=== PATIENT | male | born 1955 | race Caucasian/White ===

== ENCOUNTER → 2017-07-18 | Outpatient (CLI) | payer BC ==
[~2017-07-18] MED LIST: ACTOS15 MG PO; ALBT2T PO; ALBU17AE23 IH; ALBU8.5H2 IH; AMLO10TA2 PO; AMLO5TAB5 PO; ASP325T NG; ASP325T PO; ASP81TEC PO; ASPI-983 PO; ATEN50TA PO; ENAL10TA PO; ENAL1TAB19 PO; ENAL5TAB PO; FLAX1CAP4 PO; FLUT16SP22 NSEACH; LEVE1U SQ; LOVA20TA2 PO; MELO-195 PO; NAPR500T3 PO; NITR0.3T6 SL; NITR0.4T SL; OMG1KC PO; PANT40TA3 PO; PIOG15TA22 PO; PNT40TEC PO; POLY17PO23 PO; PREG75CA PO; SIMV40TA2 PO; SUCR1TAB PO; TRAM50TA2 PO; TRM50T PO
== END ==
LOC: RAD 11:18
PROVIDERS: ATTEND Internal Medicine Cardiovascular Disease
DX: I25.10 Atherosclerotic heart disease of native coronary artery without angina pectoris (principal); R09.89 Other specified symptoms and signs involving the circulatory and respiratory systems; R07.9 Chest pain, unspecified; E11.9 Type 2 diabetes mellitus without complications; I10 Essential (primary) hypertension
CPT/HCPCS: 93306

== ENCOUNTER 2019-03-08 07:08 | Outpatient (CLI) | payer BC ==
[~2019-03-08] VITALS: Ht 172.7 cm; Wt 147.4 kg
[~2019-03-08 07:08] MED LIST changes: -AMLO10TA2 PO; +AMLO10TA7 PO; +NAPR-915 PO; -NAPR500T3 PO; -PIOG15TA22 PO; +PIOG15TA67 PO
[2019-03-08] MEDS ORDERED: PIOG30TA71 PO (14:50)
[2019-03-08] MEDS ORDERED: FLAX1CAP4 PO (14:50)
[2019-03-08] MEDS ORDERED: GLIP5TAB13 PO (14:50)
[2019-03-08] MEDS ORDERED: ROSU20TA31 PO (14:50)
[2019-03-08] MEDS ORDERED: METO-395 PO (14:50)
[2019-03-10] MEDS ORDERED: PANT40TA2 PO (13:06)
== END 2019-03-08 14:51 | disposition home or self-care (01) ==
LOC: PREOP 07:08
PROVIDERS: ATTEND Surgery
DX: Z01.818 Encounter for other preprocedural examination (principal)

== ENCOUNTER 2019-03-10 12:19 | Day surgery (SDC) | payer BC ==
[~2019-03-10] VITALS: Ht 172.7 cm; Wt 147.4 kg
[~2019-03-10 12:19] MED LIST changes: +GLIP5TAB13 PO; +METO-395 PO; +PIOG30TA71 PO; +ROSU20TA31 PO
[2019-03-10] MEDS ORDERED: MIDAZOLAM 2 MG/2 ML (VERSED) VIAL IVP ONE (12:45)
[2019-03-10] MEDS ORDERED: fentaNYL INJECTION 100 MCG/2 ML AMP IVP ONE (12:45)
[2019-03-10] MEDS ORDERED: LIDOCAINE JELLY 2% 6 ML SYRINGE MM PRN (12:45)
[2019-03-10] MEDS ORDERED: HURRICAINE EXT TUBE (BENZOCAINE) XX PRN (12:45)
[2019-03-10] MEDS ORDERED: NS IV 500 ML 500 ML ONE ×2 (12:50→15:35)
[2019-03-10] MEDS: NS IV 500 ML 500 ML IV PRN ×2 (13:00→15:35)
--- NOTE | 2019-03-10 13:04 | Conscious Sedation/ASA ---
Conscious Sedation Pre-Proced Time 13:00 ASA Score 2 For ASA 3 and 4: Consider anesthesia and medical clearance. Also, for patients with a history of failed moderate sedation consider anesthesia. Airway Lungs Heart ASA score ASA 1: a normal healthy patient ASA 2: a patient with a mild systemic disease (mid diabetes, controlled hypertension, obesity ASA 3: a patient with a severe systemic disease that limits activity (angina, COPD, prior Myocardial infarction) ASA 4: a patient with an incapacitating disease that is a constant threat to life (CHF, renal failure) ASA 5: a moribund patient not expected to survive 24 hrs. (ruptured aneurysm) ASA 6: a declared brain- patient whose organs are being harvested. For emergent operations, add the letter E after the classification Mallampati Classification Grade 2 Sedation Plan Analgesia, Amnesia, Plan communicated to team members, Discussed options with patient/fam, Discussed risks with patient/fam The patient is an appropriate candidate to undergo the planned procedure, sedation, and anesthesia. The patient immediately re-assessed prior to indication. MERCEDES BURRELL MD March 10, 2019 13:04
--- NOTE | 2019-03-10 13:05 | Progress Note-Pre Operative ---
Pre-Operative Progress Note H&P Reviewed The H&P was reviewed, patient examined and no changes noted. Date Seen by Provider: March 10, 2019 Time Seen by Provider: 13:00 Date H&P Reviewed: March 10, 2019 Time H&P Reviewed: 13:00 Pre-Operative Diagnosis: dysphagia, screening o MERCEDES BURRELL MD March 10, 2019 13:05
[2019-03-10] MEDS ORDERED: PANT40TA2 PO (13:06)
--- NOTE | 2019-03-10 13:07 | Discharge Inst-Surgical ---
D/C Lap Instructions-KIDO New, Converted, or Re-Newed RX: RX on Chart Follow Up Activity as tolerated High Fiber Diet 25g or more per day Avoid Alcohol, Caffeine, Spicy [place] and Acid foods. Drink 64 fluid oz or more of fluids per day. Symptoms to Report: Fever over 101 degree F, Nausea/Vomiting If any problems/questions: Contact your physician or go to Emergency Room MERCEDES BURRELL MD March 10, 2019 13:07
[2019-03-10 13:09] VITALS: BP 150/108
[2019-03-10] MEDS ORDERED: ONDANSETRON 4 MG/2 ML (SDV) Z0FRAN IV PRN (13:15)
[2019-03-10] MEDS ORDERED: HYDROcodone/APAP 5 MG/325 MG (LORTAB) TAB PO PRN (13:15)
[2019-03-10] MEDS ORDERED: ACETAMINOPHEN 325 MG TABLET PO PRN (13:15)
[2019-03-10] MEDS ORDERED: morphine INJ 10 MG/ML 1ML (SYR OR VIAL) IV PRN (13:15)
[2019-03-10] MEDS ORDERED: LIDOCAINE JELLY 2% 6 ML SYRINGE ONE (15:03)
[2019-03-10] MEDS ORDERED: fentaNYL INJECTION 100 MCG/2 ML AMP ONE ×2 (15:03)
[2019-03-10] MEDS ORDERED: MIDAZOLAM 2 MG/2 ML (VERSED) VIAL ONE ×5 (15:04→15:35)
[2019-03-10] MEDS ORDERED: HURRICAINE EXT TUBE (BENZOCAINE) ONE (15:04)
--- NOTE | 2019-03-10 16:20 | Progress Note-Post Operative ---
Post-Operative Progess Note Surgeon (s)/Mechanical Artist (s) Surgeon MERCEDES BURRELL MD Mechanical Artist: none Pre-Operative Diagnosis dysphagia, screening colo Post-Operative Diagnosis reflux esophagitis(stage 2), mild distal esoph stricture vs. achalasia, small-mod HH(2cm), moderate gastritis. chronic stage 2 ext and int hemorrhoids, mild sigmoid diverticulosis, sigmoid polyp(3mm). Procedure & Operative Findings Date of Procedure 03/10/19 Procedure Performed/Findings EGD with bx and balloon dilatation. Colonoscopy with snare polypectomy. Anesthesia Type cs Estimated Blood Loss Estimated blood loss (mL): minimal Specimens/Packing Specimens Removed ge jxn, antrum, sigmoid polyp. MERCEDES BURRELL MD March 10, 2019 16:20
[2019-03-10 16:35] VITALS: BP 103/55
[2019-03-10 17:05] VITALS: BP 124/76
--- NOTE | 2019-03-11 01:06 | OPERATIVE REPORT ---
DATE OF SERVICE: 03/10/2019 ATTENDING PRIMARY CARE PHYSICIAN: Janene Velazco MD PREOPERATIVE DIAGNOSES: Nausea, vomiting, dysphagia, regurgitation, screening colonoscopy. POSTOPERATIVE DIAGNOSES: Reflux esophagitis stage II with a mild distal esophageal stricture versus a mild achalasia. Mild to moderate hiatal hernia approximately 2 cm in size, moderate severity gastritis. No distal obstructions. Chronic stage II external and internal hemorrhoids, mild sigmoid diverticulosis. Pedunculated polyp of the sigmoid colon approximately 3 mm in size. PROCEDURE: EGD with biopsy, colonoscopy with snare polypectomy. SURGEON: Mercedes Dozier MD ANESTHESIA: Conscious sedation. ESTIMATED BLOOD LOSS: Minimal. FINDINGS: Reflux esophagitis stage II with a mild distal esophageal stricture versus a mild achalasia. Mild to moderate hiatal hernia approximately 2 cm in size, moderate severity gastritis. No distal obstructions. Chronic stage II external and internal hemorrhoids, mild sigmoid diverticulosis. Pedunculated polyp of the sigmoid colon approximately 3 mm in size. DISPOSITION: The patient tolerated the procedure well. INDICATIONS: The patient is a 63-year-old male referred over to us for reflux, regurgitation, nausea and vomiting as well as dysphagia. He also reports that he is in need of a screening colonoscopy. However, he also does report in the last two months, he has had diarrhea. He reports that he does have dysphagia and does have a food and medications that will cause substernal pressure sensation, which would eventually reduce; however, he also does have episodes of regurgitation. He reports that he has been diagnosed with H. pylori in the past. He is currently on Protonix; however, feels that this has become effective over time. DESCRIPTION OF PROCEDURE: The patient was brought to the endoscopy suite, laid in the left lateral decubitus position. After adequate IV pain and sedative medications and conscious sedation anesthesia, the mouthpiece was applied. The endoscope was placed in the mouth, visualizing the pharynx and hypopharyngeal region. Vocal cords, epiglottis and vallecula identified and appeared to be normal. The endoscope was then intubated to the esophageal opening and esophagus insufflated. The endoscope was then advanced to the first, second and third portion of esophagus to the level of the GE junction, a reflux esophagitis stage II identified. There was a narrowing of this region, which may be indicated a mild distal esophageal stricture versus achalasia of the lower esophageal sphincter. A biopsy was taken of the GE junction with forceps with visualization of good hemostasis. The endoscope was then easily advanced in the stomach and the endoscope retroflexed visualizing a hiatal hernia approximately 2 cm in size. There was a moderate severity gastritis. No formal ulcerations, polyps or any neoplasms. A biopsy was taken of the antrum to rule out H. pylori with visualization of good hemostasis. Endoscope was then advanced to the pylorus and the first and second portion of the duodenum, which appeared normal with no distal obstructions. We then proceeded with dilatation of the mild stricture versus achalasia. The balloon was placed in the stomach and pulled back to the area of the narrowing. The balloon was then insufflated 2 atmospheres of pressure with no resistance. We then proceeded to 4 atmospheres of pressure with no resistance. A 6 atmospheres of pressure or 20 mm in luminal diameter, there was mild to moderate resistance and we left this in place for 60 seconds. The balloon was then desufflated, removed with visualization of good hemostasis as well as no mucosal tears. Endoscope was then slowly withdrawn while taking a second look and suctioning residual air with no additional findings. The patient tolerated the procedure well. We will recommend the necessary lifestyle and diet accommodation including weight loss as well as avoidance of caffeinated beverages, spicy, greasy and acidic foods. We will have him continue with Protonix; however, add Carafate 1 gram q.i.d. for the next 2 weeks then on a p.r.n. basis. He does have recurrent dysphagia. He may need continued graded dilatation; however, his symptoms may also be related to his hiatal hernia and we will recommend medical management with the necessary lifestyle and diet accommodation including small and more frequent meals, avoidance of eating at night as well as head elevation while lying supine. He also needs to avoid caffeinated beverages, spicy, greasy and acidic foods. Under the same anesthesia, we then proceeded with the colonoscopy portion of the procedure. A digital rectal examination was performed, which revealed mild chronic stage I external and internal hemorrhoids. Normal sphincter tone was felt and there were no palpable masses. Prostate gland was palpable and appeared normal. The endoscope was then intubated into the anus and rectum gently insufflated. The endoscope was then advanced to the valves of Jim of the rectum with no polyps or any neoplasms identified. We then proceeded through the sigmoid colon where a mild sigmoid diverticulosis identified. There was also a pedunculated polyp approximately 3 mm in size identified. This was resected and cauterized at the base using a snare and electrocautery. This was retreated by a Rodriguez Net. The endoscope was then advanced to the remainder of the sigmoid colon as well as descending, transverse and ascending colon to the cecum. These segments were normal. The endoscope was then slowly withdrawn while taking a second look and suctioning of residual air with no additional findings. The patient tolerated the procedure well. We will recommend a high fiber diet with at least 30 grams of fiber per day as well as significant amounts of water to promote more solid stool; however, not liquid diarrhea. We also do not want them to be constipated as well and he needs to find a good medium based on the amount of fiber in his diet. For his diarrhea this may be medication related and we will start a trial of Questran. We will also await the biopsy results and that this is a tubular adenoma, he may wait another 10 years; however, if there is any villous component, he will need a followup colonoscopy in 3 years. Job ID: [id number] DocumentID: [id number] Dictated Date: 03/10/2019 16:11:55 Licensed Journeyman Electrician Date: 03/11/2019 01:05:29 Dictated By: MERCEDES DOZIER MD
== END 2019-03-10 17:05 | disposition home or self-care (01) ==
LOC: ENDO 12:19
PROVIDERS: ATTEND Surgery
DX: Z12.11 Encounter for screening for malignant neoplasm of colon (principal); D12.5 Benign neoplasm of sigmoid colon; K21.0 Gastro-esophageal reflux disease with esophagitis; K44.9 Diaphragmatic hernia without obstruction or gangrene; K29.50 Unspecified chronic gastritis without bleeding; K64.1 Second degree hemorrhoids; K57.30 Diverticulosis of large intestine without perforation or abscess without bleeding; I25.10 Atherosclerotic heart disease of native coronary artery without angina pectoris; I10 Essential (primary) hypertension; E78.00 Pure hypercholesterolemia, unspecified; J44.9 Chronic obstructive pulmonary disease, unspecified; I25.2 Old myocardial infarction; Z87.19 Personal history of other diseases of the digestive system; Z79.899 Other long term (current) drug therapy; Z79.84 Long term (current) use of oral hypoglycemic drugs; Z79.82 Long term (current) use of aspirin

== ENCOUNTER → 2019-12-29 | Outpatient (CLI) | payer MEDICARE, MEDICAID ==
[~2019-12-29] MED LIST changes: -METO-395 PO; +MTP100TCR PO; +PANT40TA2 PO; -ROSU20TA31 PO; +ROSU20TA32 PO; -TRAM50TA2 PO
[2019-12-29 15:04] LABS: BILIRUBIN,TOTAL 0.9 MG/DL (0.1-1.0); CREATININE SERUM 1.33 MG/DL (0.60-1.30); POTASSIUM 4.7 MMOL/L (3.6-5.0)
[2019-12-29 15:05] LABS: ALBUMIN 4.4 GM/DL (3.2-4.5); TOTAL PROTEIN 7.6 GM/DL (6.4-8.2)
== END ==
LOC: LAB FS 13:01
PROVIDERS: ATTEND Internal Medicine Cardiovascular Disease
DX: I25.10 Atherosclerotic heart disease of native coronary artery without angina pectoris (principal); I44.4 Left anterior fascicular block; I10 Essential (primary) hypertension; E11.9 Type 2 diabetes mellitus without complications; E78.2 Mixed hyperlipidemia
CPT/HCPCS: 36415; 80053; 80061

== ENCOUNTER 2020-04-17 18:00 | Observation (INO) | payer MEDICARE, MEDICAID ==
[~2020-04-17] VITALS: Ht 172.7 cm; Wt 121.1 kg
[2020-04-17] MEDS ORDERED: ASPIRIN 81 MG CHEW (CHILDREN'S ASA) PO ONE (18:15)
[2020-04-17 18:31] LABS: BASOPHILS % (AUTO) 0 % (0-10); EOSINOPHILS # (AUTO) 0.2 10^3/uL (0.0-0.3); EOSINOPHILS % (AUTO) 3 % (0-10); HEMATOCRIT 45 % (40-54); HEMOGLOBIN 14.4 G/DL (13.3-17.7); LYMPHOCYTES # (AUTO) 1.9 X 10^3 (1.0-4.0); LYMPHOCYTES % (AUTO) 26 % (12-44); MEAN CORPUSCULAR HEMOGLOBIN 26 PG (25-34); MEAN CORPUSCULAR HGB CONC 32 G/DL (32-36); MEAN CORPUSCULAR VOLUME 80 FL (80-99); MONOCYTES # (AUTO) 0.7 X 10^3 (0.0-1.0); MONOCYTES % (AUTO) 9 % (0-12); NEUTROPHILS # (AUTO) 4.5 X 10^3 (1.8-7.8); NEUTROPHILS % (AUTO) 62 % (42-75); PLATELET COUNT 154 10^3/uL (130-400); RED CELL DISTRIBUTION WIDTH 15.7 % (10.0-14.5); WHITE BLOOD COUNT 7.3 10^3/uL (4.3-11.0)
--- NOTE | 2020-04-17 18:39 | ED Chest Pain ---
General Chief Complaint: Chest Pain Stated Complaint: CP Source: patient Exam Limitations: no limitations History of Present Illness Date Seen by Provider: Apr 17, 2020 Time Seen by Provider: 18:03 Initial Comments 65-year-old male who presents to the emergency room with complaints of chest pain started last night. He reports he has history of IL and has been using some older nitroglycerin and he has been uses from time to time. He reports that the chest pain is all of a sudden stabbing and radiates to his left shoulder and left jaw. He denies any shortness of breath but has had mild nausea and loss of appetite. He denies any cough, shortness of breath, or fevers. He does report that the pain takes his breath away. Timing/Duration: 24 hours Severity/Quality: mild Location: substernal Radiation: jaw, shoulders ASA po ASSISTANT FEDERAL PUBLIC DEFENDER: No NTG SL ASSISTANT FEDERAL PUBLIC DEFENDER: Yes Associated Symptoms: nausea/vomiting Allergies and Home Medications Allergies Coded Allergies: Haloperidol Lactate (Verified Allergy, Unknown, 08/11/15) glimepiride (Verified Allergy, Unknown, Diarrhea, 03/08/19) haloperidol (Verified Allergy, Unknown, 08/11/15) metformin (Verified Allergy, Unknown, 08/11/15) Home Medications Amlodipine Besylate 10 Mg Tablet, 10 MG PO DAILY, (Reported) Aspirin 81 Mg Tablet.dr, 81 MG PO DAILY, (Reported) Enalapril Maleate 10 Mg Tablet, 10 MG PO BID, (Reported) Flaxseed/Omega3,6,9/Fatty Acid 1 Each Capsule, 2 EACH PO DAILY, (Reported) Fluticasone Propionate 16 Gm [place].susp, 2 SPRAYS NSEACH DAILY IN AFTERNOON PRN for ALLERGIES, (Reported) Glipizide 5 Mg Tablet, 5 MG PO BID, (Reported) Metoprolol Succinate 100 Mg Tab.er.24h, 100 MG PO DAILY, (Reported) Pantoprazole Sodium 40 Mg Tablet.dr, 40 MG PO DAILY Prescribed by: MERCEDES BURRELL on 03/10/19 1306 Pioglitazone HCl 30 Mg Tablet, 30 MG PO DAILY, (Reported) Rosuvastatin Calcium 20 Mg Tablet, 20 MG PO HS, (Reported) Patient Home Medication List Home Medication List Reviewed: Yes Review of Systems Review of Systems Constitutional: see HPI; No chills, No fever Cardiovascular: See HPI, Chest Pain Gastrointestinal: See HPI, Nausea All Other Systems Reviewed Negative Unless Noted: Yes Past Lsrqgsj-Odzwhk-Bvbgmo Hx Past Med/Social Hx: Reviewed Nursing Past Med/Soc Hx Patient Social History Alcohol Use: Occasionally Uses Recreational Drug Use: No Smoking Status: Former Smoker Type Used: Cigarettes Former Smoker, Quit: March 08, 1990 Recent Hopitalizations: No Immunizations Up To Date Tetanus Booster (TDap): More than 5yrs Date of Pneumonia Vaccine: Sep 19, 2011 Date of Influenza Vaccine: Aug 12, 2015 Seasonal Allergies Seasonal Allergies: No Past Medical History Surgeries: Yes (teeth extraction) Appendectomy, Gallbladder Respiratory: Yes COPD Currently Using CPAP: No Currently Using BIPAP: No Cardiac: Yes (neuropathy of heart muscle, heart cath) Coronary Artery Disease, Heart Attack, High Cholesterol, Hypertension Neurological: No Reproductive Disorders: No Sexually Transmitted Disease: No HIV/AIDS: No Genitourinary: Yes Kidney Stones Gastrointestinal: Yes (dysphagia) Gastrointestinal Bleed, Hemorrhoids, Chronic Diarrhea, Hiatal Hernia Musculoskeletal: Yes Arthritis, Rheumatoid Arthritis Endocrine: Yes Diabetes, Non-Insulin dep HEENT: Yes Cataract, Tinnitis Loss of Vision: Denies Hearing Impairment: Denies Cancer: No Psychosocial: No Integumentary: No Blood Disorders: No Adverse Reaction/Blood Tranf: No Family Medical History Reviewed Nursing Family Hx Cardiovascular disease 19 FATHER 19 MOTHER Hypertension 19 FATHER No Pertinent Family Hx Physical Exam Vital Signs Vital Signs - First Documented 04/17/20 18:00 Temp 36.7 Pulse 88 Resp 20 B/P (MAP) 193/97 (129) Pulse Ox 99 O2 Delivery Room Air Capillary Refill : NONE Height, Weight, BMI Height: 5'8.00" Weight: 325lbs. 0.0oz. [id number]; 49.4 BMI Method: General Appearance: No Apparent Distress, WD/WN Respiratory: Chest Non Tender, Lungs Clear, Normal Breath Sounds, No Accessory Muscle Use, No Respiratory Distress Cardiovascular: Regular Rate, Rhythm, No Edema, No Gallop, No JVD, No Murmur, Normal Peripheral Pulses Gastrointestinal: Normal Bowel Sounds, No Organomegaly, No Pulsatile Mass, Non Tender Neurologic/Psychiatric: Alert, Oriented x3, Normal Mood/Affect Skin: Normal Color, Warm/Dry Progress/Results/Core Measures Results/Orders Lab Results Laboratory Tests Test 04/17/20 18:10 Range/Units White Blood Count 7.3 4.3-11.0 10^3/uL Red Blood Count 5.60 4.35-5.85 10^6/uL Hemoglobin 14.4 13.3-17.7 G/DL Hematocrit 45 40-54 % Mean Corpuscular Volume 80 80-99 FL Mean Corpuscular Hemoglobin 26 25-34 PG Mean Corpuscular Hemoglobin Concent 32 32-36 G/DL Red Cell Distribution Width 15.7 H 10.0-14.5 % Platelet Count 154 130-400 10^3/uL Mean Platelet Volume 11.0 H 7.4-10.4 FL Neutrophils (%) (Auto) 62 42-75 % Lymphocytes (%) (Auto) 26 12-44 % Monocytes (%) (Auto) 9 0-12 % Eosinophils (%) (Auto) 3 0-10 % Basophils (%) (Auto) 0 0-10 % Neutrophils # (Auto) 4.5 1.8-7.8 X 10^3 Lymphocytes # (Auto) 1.9 1.0-4.0 X 10^3 Monocytes # (Auto) 0.7 0.0-1.0 X 10^3 Eosinophils # (Auto) 0.2 0.0-0.3 10^3/uL Basophils # (Auto) 0.0 0.0-0.1 10^3/uL Prothrombin Time 13.9 12.2-14.7 SEC INR Comment 1.0 0.8-1.4 Activated Partial Thromboplast Time 30 24-35 SEC Sodium Level 136 135-145 MMOL/L Potassium Level 4.3 3.6-5.0 MMOL/L Chloride Level 102 98-107 MMOL/L Carbon Dioxide Level 21 21-32 MMOL/L Anion Gap 13 5-14 MMOL/L Blood Urea Nitrogen 21 H 7-18 MG/DL Creatinine 1.55 H 0.60-1.30 MG/DL Estimat Glomerular Filtration Rate 45 BUN/Creatinine Ratio 14 Glucose Level 220 H 70-105 MG/DL Calcium Level 9.8 8.5-10.1 MG/DL Corrected Calcium 9.5 8.5-10.1 MG/DL Magnesium Level 1.8 1.6-2.4 MG/DL Total Bilirubin 0.9 0.1-1.0 MG/DL Aspartate Amino Transf (AST/SGOT) 34 5-34 U/L Alanine Aminotransferase (ALT/SGPT) 37 0-55 U/L Alkaline Phosphatase 64 40-136 U/L Myoglobin 66.5 10.0-92.0 NG/ML Troponin I < 0.028 <0.028 NG/ML Total Protein 8.0 6.4-8.2 GM/DL Albumin 4.4 3.2-4.5 GM/DL My Orders Orders - FAWNDIONI Aspirin Chewable Tablet (Baby Aspirin Ch (04/17/20 18:15) Cbc With Automated Diff (04/17/20 18:02) Magnesium (04/17/20 18:02) Chest 1 View, Ap/Pa Only (04/17/20 18:02) Ekg Tracing (04/17/20 18:02) Comprehensive Metabolic Panel (04/17/20 18:02) Myoglobin Serum (04/17/20 18:02) Protime With Inr (04/17/20 18:02) Partial Thromboplastin Time (04/17/20 18:02) O2 (04/17/20 18:02) Monitor-Rhythm Ecg Trace Only (04/17/20 18:02) Ed Iv/Invasive Line Start (04/17/20 18:02) Troponin I (04/17/20 18:02) Coronavirus Sars-Cov-2 So 2019 (04/17/20 18:02) Medications Given in ED Current Medications Medications Dose Ordered Sig/Alethea Route Start Time Stop Time Status Last Admin Dose Admin Aspirin 324 mg ONCE ONCE PO 04/17/20 18:15 04/17/20 18:16 DC 04/17/20 18:20 324 MG Vital Signs/I&O 04/17/20 04/17/20 04/17/20 18:00 18:00 19:02 Temp 36.7 Pulse 88 Resp 20 B/P (MAP) 193/97 (129) 193/97 104/77 Pulse Ox 99 O2 Delivery Room Air Room Air Initial ECG Impression Date: Apr 18, 2020 Initial ECG Impression Time: 17:58 Initial ECG Rate: 85 Initial ECG Rhythm: Normal Sinus Initial ECG Intervals: Normal Initial ECG Impression: Normal Diagnostic Imaging Diagonstic Imaging: Xray Comments [facility]. [place], [place] NAME: BRIAN ATKINSON [facility] REC#: [id number] PT STATUS: REG ER : 1955 PHYSICIAN: DIONI AUGUSTINE ADMIT DATE: 04/17/20/ER Signed Date of Exam:04/17/20 CHEST 1 VIEW, AP/PA ONLY EXAMINATION: Chest 1 view HISTORY: Chest pain COMPARISON: 08/11/2015 FINDINGS: The lungs are clear without edema or pneumonia. No pleural effusion or pneumothorax. Heart size is normal for portable technique. IMPRESSION: 1. Clear lungs. Dictated by: Dictated on workstation # [id number] Dict: 04/17/20 1842 Trans: 04/17/201925 [facility] [id number] Interpreted by: YON MOREL MD Electronically signed by: YON MOREL MD 04/17/201925 Reviewed: Reviewed by Me Departure Communication (Admissions) Time/Spoke to Admitting Phy: 19:15 Marcus. Agrees to accept the patient to his services. With consult to [facility]. Time/Spoke to Consulting Phy: 19:[address] Coyne at this time. He will over see patient tonight but wants consult to Billie in am. Impression Primary Impression: Chest pain Disposition: 01 HOME, SELF-CARE Condition: Stable/Unchanged Admissions Decision to Admit Reason: Admit from ER (General) Decision to Admit/Date: Apr 17, 2020 Time/Decision to Admit Time: 19:15 Departure-Patient Inst. Referrals: LUIS ESTRADA MD (PCP/Family) Primary Care Physician DIONI AUGUSTINE Apr 17, 2020 18:39
--- NOTE | 2020-04-17 18:44 | Diagnostic Imaging Report ---
EXAMINATION: Chest 1 view HISTORY: Chest pain COMPARISON: 08/11/2015 FINDINGS: The lungs are clear without edema or pneumonia. No pleural effusion or pneumothorax. Heart size is normal for portable technique. IMPRESSION: 1. Clear lungs. Dictated by: Dictated on workstation # [id number]
[2020-04-17 18:47] LABS: PROTHROMBIN TIME PATIENT 13.9 SEC (12.2-14.7)
[2020-04-17 18:50] LABS: ALBUMIN 4.4 GM/DL (3.2-4.5)
[2020-04-17 18:51] LABS: POTASSIUM 4.3 MMOL/L (3.6-5.0)
[2020-04-17 18:52] LABS: CALCIUM 9.8 MG/DL (8.5-10.1)
[2020-04-17 18:55] LABS: BILIRUBIN,TOTAL 0.9 MG/DL (0.1-1.0)
[2020-04-17 18:57] LABS: CREATININE SERUM 1.55 MG/DL (0.60-1.30)
[2020-04-17 19:00] LABS: MAGNESIUM 1.8 MG/DL (1.6-2.4)
--- NOTE | 2020-04-17 19:25 | NUR ---
Pt swabbed for COVID-19 at this time.
--- NOTE | 2020-04-17 20:00 | NUR ---
Attempted to call report; no answer on ICU.
--- OUTSIDE RECORDS SUMMARY | 2020-04-17 20:56 | XMS REPORT ---
Author Author [employer] [facility] [employer] Address [address] [address] Care Team Providers Care School Psychometrist Name Role Phone LUIS ESTRADA Unavailable LUIS ESTRADA Unavailable Unavailable LUIS ESTRADA Unavailable Unavailable LUIS ESTRADA Unavailable Unavailable LUIS ESTRADA PCP LUIS ESTRADA Unavailable Unavailable BENNETT DREW Unavailable Unavailable BENNETT DREW Unavailable Unavailable LUIS ESTRADA MD Unavailable Unavailable MERCEDES BURRELL MD Unavailable Unavailable LATIA ERIC MD Unavailable Unavailable HECTOR FUNG MD Unavailable Unavailable HECTOR FUNG MD Unavailable Unavailable BENNETT DREW Unavailable Unavailable BENNETT DREW Unavailable Unavailable BENNETT DREW Unavailable Unavailable Unavailable Unavailable Unavailable Unavailable Unavailable Unavailable Allergies Normalized Allergy Reported Date of Reaction(s) Care Provider Facility Allergy Type classification allergen Allergy Onset Drug Allergy glimepiride glimepiride 03-08-2019 - GI PROBLEMS - LUIS ESTRADA [facility] Via (20 sources.) Translations: ESE, [place] [ glimepiride UNKNOWN, Hospital - ([id number]), glimepiride [place] glimepiride] ([id number]), (49954) Diarrhea Medications Medication Ingredient Drug Dose Dates Status Sig Sig Care Class(es) (Normalized) (Original) Provid er no Albuterol no 03-08-20 Complete no Albuterol (no information (Proair information 19 d information (Proai r Hfa) phone) (2 Hfa) 8.5 Gm 8.5 Gm sources.) Hfa.aer.ad, Hfa.aer.ad, 2 Puff 2 Puff Respiratory Respiratory (Inhalation (Inhalation) ) Every 4HRS as needed for Shortness Of Breath Discontinued no Aspirin no 08-11-20 Complete no Aspirin (no information (Aspirin information 15 d information (Aspi rin 325 phone) (2 325 Mg Tab) Mg Tab) 325 sources.) 325 Mg Tab, Mg Tab, 325 325 Mg Oral Mg Oral Daily Discontinued no Aspirin no 07-05-20 Complete no Aspirin (no information (Aspirin Ec information 11 d information (A spirin Ec phone) (2 81 Mg) 81 81 Mg) 81 Mg sources.) Mg Tabec, Tabec, 325 325 Mg Oral Mg Oral Daily Discontinued no Flaxseed/Om no Complete take 2 Flaxseed/Ome (n o information ega3,6,9/Fa information d capsules by ga3,6 ,9/[employer] phone) (2 tty Acid mouth once y Acid (Flax sources.) (Flax Seed daily, then Seed Oil Oil 1,300 take 1 1,300 Mg Mg Softgel) capsule by Softgel) 1 1 Each mouth Each Capsule Capsule 2 Each ORAL Daily no Flaxseed/Om no 2600 03-08-20 Complete take 1 Flaxse ed/Ome (no information ega3,6,9/Fa information mg 19 d capsule by ga3,6,9/[employer] phone) (2 tty Acid mouth twice y Acid (Flax sources.) (Flax Seed daily Seed Oil Oil 1,300 1,300 Mg Mg Softgel) Softgel) 1 1 Each Each Capsule, Capsule, 2600 Mg 2600 Mg Oral Oral Twice A Day Discontinued no Fluticasone no 08-11-20 Complete no Fluticasone ( no information Propionate information 15 d information Pro pionate phone) (2 (Flonase (Flonase sources.) Nasal Nasal [place]) [place]) 16 16 Gm Naspr, Gm Naspr, 1 1 Sprays Sprays Nasal Daily Nasal as needed for Allegies Discontinued no Fluticasone no 1 Complete no Fluticasone (no information Propionate information spray( d information Pro pionate phone) (2 16 Gm s) 16 Gm sources.) [place].susp [place].susp 2 Sprays NASAL Daily In Afternoon as needed for Allergies glipiZIDE 5 glipiZIDE Sulfonylure 5 mg Complete take 1 Glipizid e 5 (no mg oral a d tablet by Mg Tablet 5 phone) tablet (2 mouth twice Mg ORAL sources.) daily Twice A Day no Insulin no 03-01-20 Complete no Insulin (no information Detemir information 15 d information Detemi r phone) (2 (Levemir (Levemir sources.) Pen) 100 Pen) 100 U/Ml U/Ml Insuln.pen, Insuln.pen, 26 Units 26 Units Subcutaneou Subcutaneous s Bedtime Discontinued 24 hr Metoprolol beta-Adrene 100 mg Complete take 1 Metoprolol (no metoprolol rgic d tablet by Succinate phone) succinate Susana mouth once 100 Mg 100 mg daily Tab.er.24h extended 100 Mg ORAL release Daily oral tablet (2 sources.) no Pantoprazol no 08-11-20 Complete no Pantoprazole (no information e Sod information 15 d information Sod phone) (2 (Protonix (Protonix sources.) Tab) 40 Mg Tab) 40 Mg Tab, 40 Mg Tab, 40 Mg Oral Oral Daily Discontinued no Pantoprazol no 03-08-20 Complete no Pantoprazole (no information e Sodium 40 information 19 d information So dium 40 Mg phone) (2 Mg Tablet.dr, sources.) Tablet.dr, 40 Mg Oral 40 Mg Oral Daily Discontinued rosuvastati rosuvastati HMG-CoA 20 mg Complete take 1 Rosuvastat in (no n calcium n Reductase d tablet by Calcium 20 ph one) 20 mg oral Inhibitor mouth at Mg Tablet 20 tablet (2 bedtime Mg ORAL sources.) Bedtime no Tramadol no 08-11-20 Complete no Tramadol Hcl (no information Hcl information 15 d information (Ultram ) 50 phone) (2 (Ultram) 50 Mg Tab, 50 sources.) Mg Tab, 50 Mg Oral Mg Oral Every 8HRS as needed for Pain Discontinued Problems Active Problems Problem Normalized Date Last Normalized Normalized Provider Fa cility Classification Problem(s) Recorded Problem Problem Sta tus Duration Coronary Atheroscleroti Chronic Active ALI MAXIME , Not Available atherosclerosi c heart [facility] (47359) s and other disease of heart disease [place] (21 sources.) coronary artery without angina pectoris Translations: [ CORONARY ATHEROSCLEROSI S OF [place] CORONARY ARTERY, CORON ATHEROSCLER NOS TYPE VESSEL, NATIV, OLD MYOCARDIAL INFARCTION, CORONARY ATHEROSCLEROSI S OF [place] CORONARY ARTERY] Other and Benign Episodic Active MERCEDES BURRELL [facility] Via unspecified neoplasm of [place] benign sigmoid colon [facility] - neoplasm (6 [place] sources.) (42894) Other Body Mass Chronic Active LATIA ERIC [facility] Via nutritional; Index [place] endocrine; and 38.0-38.9, Hospital - metabolic adult [place] disorders (5 (01242) sources.) Other Body Mass Chronic Active ROOPA SWARTZ , Not Avail able nutritional; Index [place] (02825) endocrine; and 45.0-49.9, metabolic adult disorders (1 source.) Nonspecific Chest pain, Episodic Active LATIA ERIC [facility] Via chest pain (16 unspecified [place] sources.) Translations: Hospital - [ CHEST PAIN [place] NOS] (43592) Chronic Chronic Chronic Active MERCEDES BURRELL [facility] Via obstructive obstructive [place] pulmonary pulmonary [facility] - disease and disease, [place] bronchiectasis unspecified (01195) (6 sources.) Diabetes Diabetes Chronic Active ROOPA MAXIME , Not Availa ble mellitus mellitus [facility] [place] (23543) without without complication mention of (24 sources.) complication, type II or unspecified type, not stated as uncontrolled Translations: [ TYPE 2 DIABETES MELLITUS WITHOUT COMPLIC, DIABETES MELLITUS WITHOUT MENTION OF COMPLICATION, TYPE II OR UNSPECIFIED TYPE, NOT STATED UNCONTROLLED, DIABETES MELLITUS WITHOUT MENTION OF COMPLICATION, TYPE II OR UNSPECIFIED TYPE, NOT STATED UNCONTROLLED] Abdominal Diaphragmatic Episodic Active MERCEDES BURRELL [facility] Via hernia (6 hernia without [place] sources.) obstruction or Hospital - gangrene [place] (05963) Other Diarrhea Episodic Active LUIS MACHADOENS [facility] Via gastrointestMD Kyara magana [facility] Hospital - (6 sources.) [place] (16240) Other Diarrhea Episodic Active LUIS Herio n Via gastrointestin [address] [facility] (1 source.) (94992) Diverticulosis Diverticulosis Chronic Active NGUYỄNKRYSTAL BURRELL [facility] Via and of large [place] diverticulitis intestine Hospital - (6 sources.) without [place] perforation or (10798) abscess without bleeding Other Dysphagia Episodic Active LUIS ESTRADA Asci on Via gastrointestin [address] [facility] (1 source.) (25479) Immunizations Encounter for Episodic Active HECTOR FUNG [facility] Via and screening immunization , [place] for infectious Hospital - disease (5 [place] sources.) (71478) Other Encounter for Episodic Active BENNETT DREW Hosp ital screening for screening for [facility] of suspected malignant Aaron conditions neoplasm of County ([address]67) (not mental prostate disorders or Translations: infectious [ SCREENING disease) (14 FOR MALIGNANT sources.) NEOPLASMS OF PROSTATE, ENCOUNTER FOR SCREENING FOR MALIGNANT NE] Essential Essential Chronic Active ALI MAXIME , Not Avail able hypertension (primary) [facility] [place] (43097) (21 sources.) hypertension Translations: [ MALIGNANT ESSENTIAL HYPERTENSION, HYPERTENSION NOS, MALIGNANT ESSENTIAL HYPERTENSION, UNSPECIFIED ESSENTIAL HYPERTENSION] Esophageal Gastro-esophag Chronic Active [facility] spital disorders (12 eal reflux [facility] of sources.) disease with [place] esophagitis [facility] (98708) Translations: [ ESOPHAGEAL REFLUX] 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) Disorders of Other and Chronic Active ALI [facility] , Not Av ailable lipid unspecified [place] (68423) metabolism (21 hyperlipidemia sources.) Translations: [ HYPERLIPIDEMIA , UNSPECIFIED, OTHER AND UNSPECIFIED HYPERLIPIDEMIA , PURE HYPERCHOLESTER OLEMIA, UNSPECIFIED, MIXED HYPERLIPIDEMIA ] Other Other Chronic Active [facility] nutritional; disorders of [facility] of endocrine; and lipoid [place] metabolic metabolism [facility] (45425) disorders (3 sources.) Other Other long Episodic Active TAKAAKI KIDO , [facility] Vi a aftercare (6 term (current) [place] sources.) drug therapy [facility] (27492) Other Other Episodic Active BASHAR JEANETH , [facility] Via circulatory specified [place] disease (6 symptoms and Hospital - sources.) signs [place] involving the (90541) circulatory and respiratory systems Other Personal Episodic Active TAKAAKI KIDO , [facility] Via gastrointestin history of [place] al disorders other diseases Hospital - (6 sources.) of the [place] digestive (82557) system Screening and Personal Episodic Active BASHAR JEANETH , [facility] Via history of history of [place] mental health tobacco use Hospital - and substance [place] abuse codes (5 (60116) sources.) Hemorrhoids (6 Second degree Episodic Active TAKAAKI KIDO , [facility] Via sources.) hemorrhoids [facility] (49927) Spondylosis; Spinal Episodic Active ALI MAXIME , Not Brit ilable intervertebral stenosis in [place] (05429) disc cervical disorders; region other back Translations: problems (2 [ SPINAL sources.) DISORDERS NEC] Syncope (5 Syncope and Episodic Active BASHAR JEANETH , [facility] Via sources.) collapse [facility] (34492) Diabetes Type 2 Chronic Active [facility] mellitus with diabetes [facility] of complications mellitus with [place] (7 sources.) hyperglycemia [facility] (79327) Translations: [ DIABETES MELLITUS WITH OTHER SPECIFIED MANIFESTATIONS , TYPE II OR UNSPECIFIED TYPE, NOT STATED UNCONTROLLED, DIABETES MELLITUS WITH OTHER SPECIFIED MANIFESTATIONS , TYPE II OR UNSPECIFIED TYPE, NOT STATED UNCONTROLLED] Gastritis and Unspecified Chronic Active MERCEDES KIDO , [facility] Via duodenitis (6 chronic [place] sources.) gastritis [facility] bleeding (59077) Nausea and Vomiting alone Episodic Active [facility] Via vomiting (6 , [place] sources.) [facility] (22156) Unclassified no information no information Active [facility] Jack Via (1 source.) [address] [facility] (63461) Past or Other Problems Problem Normalized Date Last Normalized Normalized Provider Fa cility Classification Problem(s) Recorded Problem Problem Sta tus Duration 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 no information no information TAKAAKI KIDO , [facility] Via aftercare (1 (current) use [place] source.) of oral Hospital - hypoglycemic [place] drugs (17645) Disorders of Pure no information no information MERCEDES SPENCER O , [facility] Via lipid hypercholester [place] metabolism (1 olemia, Hospital - source.) unspecified [place] (13593) Procedures Procedure Normalized Procedure Procedure Result Performer Facility Date 03-10-2019 Colonoscopy no information MERCEDES SPENCERO Jack Via [facility] (61376) 03-10-2019 Esophagogastroduodenos no information MERCEDES KIDO Jack Via [facility] (10472) Immunizations Normalized Immunization Date Notes Care Provider Facili ty Immunization vaccine no information LUIS ESTRADA [id number] Jack Via Translations: [ [facility] vaccine] (93545) Results Test Name Value Interpretation Reference Range Date Time Fa cility (Normalized) (Normalized) (Medline Reference) other on 2019-03-09 Average glucose 214 (H) 03-09-2019 Hospital Estimated from 10:30-0400 [facility] of glycated [facility] hemoglobin mass (35687) conc (Bld) metabolic panel on 2019-03-09 HbA1c (Bld) 8.20 % (H) 0 - 5.7 % 03-09-2019 Hospital [Mass fraction] 10:30-0400 [facility] (26131) other on 2018-12-08 Albumin (U) 74.0 (H) 12-08-2018 Hospital [Mass/Vol] 10:25-0500 [facility] (81071) Average glucose 284 (H) 12-08-2018 Hospital Estimated from 10:250500 [facility] of glycated [facility] hemoglobin mass (60839) conc (Bld) Cholesterol in 24 mg/dL (no code) 12-08-2018 Hospital VLDL [Mass/Vol] 10:250500 [facility] (40404) Cholesterol.tota 4.4 {ratio} (no code) 12-08-2018 Hospital l/Cholesterol in 10:25-0500 [facility] of HDL [Mass ratio] [facility] (53397) GFR/1.73 sq 54 (L) 90 - 120 12-08-2018 Hospital M.predicted MDRD mL/min/{1.73_m2} mL/min/{1.73_m2} 10:25-0500 [facility] of (S/P/Bld) [Vol [facility] rate/Area] (80873) HCO3 (P) 25 (no code) 12-08-2018 Hospital [Moles/Vol] 10: [facility] (96590) Osmolality Calc 293 (no code) 12-08-2018 Hospital [Osmolality] 10: [facility] (73396) Prostate 0.9 (no code) 12-08-2018 Hospital specific Ag DL 10: [facility] of <= 0.01 ng/mL [facility] [Mass/Vol] () metabolic panel on 2018-12-08 Anion gap 15 mmol/L (H) 3 - 11 mmol/L 12-08-2018 Hospital [Moles/Vol] 10: [facility] (49297) Calcium 9.6 mg/dL (no code) 8.5 - 10.2 mg/dL 12-08-2018 Hospi robert [Mass/Vol] 10: [facility] (48813) Chloride 103 mmol/L (no code) 95 - 106 mmol/L 12-08-2018 Hospi robert [Moles/Vol] 10: [facility] (59304) Creatinine 1.33 mg/dL (no code) 12-08-2018 Hospital [Mass/Vol] 10: [facility] (66577) Glucose 190 mg/dL (H) 60 - 125 mg/dL 12-08-2018 Hospita l [Mass/Vol] 10: [facility] (47756) HbA1c (Bld) 10.10 % (H) 0 - 5.7 % 12-08-2018 Hospital [Mass fraction] 10: [facility] (11720) Potassium 4.5 mmol/L (no code) 3.7 - 5.2 mmol/L 12-08-2018 Hosp ital [Moles/Vol] 10: [facility] (55511) Sodium 138 mmol/L (no code) 135 - 145 mmol/L 12-08-2018 Hosp ital [Moles/Vol] 10: [facility] (71856) Urea nitrogen 21 mg/dL (no code) 7 - 20 mg/dL 12-08-2018 Hospi robert [Mass/Vol] 10: [facility] (71999) cardiac on 2018-12-08 Cholesterol 153 mg/dL (no code) 180 - 200 mg/dL 12-08-2018 Hosp ital [Mass/Vol] 10: [facility] (57628) Cholesterol in 35 mg/dL (no code) 12-08-2018 Hospital HDL [Mass/Vol] 10: [facility] (75382) Cholesterol in 94 mg/dL (no code) 0 - 100 mg/dL 12-08-2018 Hos pital LDL [Mass/Vol] 10: [facility] (06702) Triglyceride 121 mg/dL (no code) 0 - 150 mg/dL 12-08-2018 Hospi robert [Mass/Vol] 10: [facility] (11856) urinalysis on 2018-08-03 Bilirubin Ql (U) 1.1 (no code) 08-03-2018 Hospital 11:450400 [facility] (44229) other on 2018-08-03 Globulin 3.0 g/dL (no code) 2 - 3.5 g/dL 08-03-2018 Hospital Calculated mass 11:45-0400 [facility] of conc (S) [facility] (20159) metabolic panel on 2018-08-03 Albumin mass 4.3 g/dL (no code) 3.4 - 5.4 g/dL 08-03-2018 Hosp ital conc 11:450400 [facility] (03511) ALP enzyme 44 U/L (no code) 44 - 147 U/L 08-03-2018 Hospital act/vol 11:45040 [facility] (24216) ALT enzyme 28 U/L (no code) 4 - 40 U/L 08-03-2018 Hospital act/vol 11:450400 [facility] (33710) Anion gap 3 15 mmol/L (H) 3 - 11 mmol/L 08-03-2018 Hospit al molar conc 11: [facility] (21609) AST enzyme 29 U/L (no code) 10 - 34 U/L 08-03-2018 Hospital act/vol 11: [facility] (04082) Calcium mass 9.7 mg/dL (no code) 8.5 - 10.2 mg/dL 08-03-2018 Ho spital conc 11: [facility] (17736) Chloride molar 102 mmol/L (no code) 95 - 106 mmol/L 08-03-2018 Hospital conc 11: [facility] (29547) CO2 molar conc 27 mmol/L (no code) 23 - 29 mmol/L 08-03-2018 Ho spital 11: [facility] () Creatinine mass 1.22 mg/dL (no code) 08-03-2018 Hospital conc 11: [facility] () GFR/1.73 sq M 60 (no code) 90 - 120 08-03-2018 Hospital predicted among mL/min/{1.73_m2} mL/min/{1.73_m2} 11: [facility] of non-blacks MDRD [facility] vol rate/area () (S/P/Bld) Glucose mass 155 mg/dL (H) 60 - 125 mg/dL 08-03-2018 Hosp ital conc 11: [facility] (97954) Osmolality 292 mosm/kg (no code) 275 - 295 08-03-2018 Hospital mosm/kg 11: [facility] (26562) Potassium molar 5.0 mmol/L (no code) 3.7 - 5.2 mmol/L 08-03-2018 Hospital conc 11: [facility] (60846) Protein mass 7.3 g/dL (no code) 6.4 - 8.3 g/dL 08-03-2018 Hosp ital conc 11: [facility] (80170) Sodium molar 139 mmol/L (no code) 135 - 145 mmol/L 08-03-2018 H ospital conc 11:45-0400 [facility] (63580) Urea nitrogen 19 mg/dL (no code) 7 - 20 mg/dL 08-03-2018 Hospi robert mass conc 11:45-0400 [facility] #1 [facility] (10704) other on 2018-04-30 %A1C 7.70 (H) 04-30-2018 no information 15:15-0400 Average glucose 197 (H) 04-30-2018 no informa tion Estimated from 15:15040 glycated hemoglobin mass conc (Bld) metabolic panel on 2018-04-30 Anion gap 3 19 mmol/L (H) 3 - 11 mmol/L 04-30-2018 no inf ormation molar conc 15:15 Calcium mass 9.8 mg/dL (no code) 8.5 - 10.2 mg/dL 04-30-2018 no information conc 15:150400 Chloride molar 105 mmol/L (no code) 95 - 106 mmol/L 04-30-2018 no information conc 15:150400 CO2 molar conc 21 mmol/L (L) 23 - 29 mmol/L 04-30-2018 no information 15:150400 Creatinine mass 1.31 mg/dL (no code) 04-30-2018 no informa tion conc 15:15040 GFR/1.73 sq M 55 (L) 90 - 120 04-30-2018 no infor mation predicted among mL/min/{1.73_m2} mL/min/{1.73_m2} 15:15-040 0 non-blacks MDRD vol rate/area (S/P/Bld) Glucose mass 180 mg/dL (H) 60 - 125 mg/dL 04-30-2018 no i nformation conc 15:150400 Osmolality 295 mosm/kg (no code) 275 - 295 04-30-2018 no inform ation mosm/kg 15:150400 Potassium molar 4.8 mmol/L (no code) 3.7 - 5.2 mmol/L 04-30-2018 no information conc 15:150400 Sodium molar 140 mmol/L (no code) 135 - 145 mmol/L 04-30-2018 n o information conc 15:150400 Urea nitrogen 18 mg/dL (no code) 7 - 20 mg/dL 04-30-2018 no in formation mass conc 15:15-0400 other on 2016-11-15 Albumin (U) 104.0 (H) 11-15-2016 Not Available [Mass/Vol] 14:20-0500 (51973) Average glucose 216 (H) 11-15-2016 Not Availa ble Estimated from 14:0500 (95024) glycated hemoglobin mass conc (Bld) Cholesterol in 44 mg/dL (H) 11-15-2016 Not Availab le VLDL [Mass/Vol] 14:0500 (53515) Cholesterol.tota 5.3 {ratio} (no code) 11-15-2016 Not Avail able l/Cholesterol in 14:0500 (61985) HDL [Mass ratio] GFR/1.73 sq 51 (L) 90 - 120 11-15-2016 Not Availa ble M.predicted MDRD mL/min/{1.73_m2} mL/min/{1.73_m2} 14:0500 (34581) (S/P/Bld) [Vol rate/Area] HCO3 (P) 25 (no code) 11-15-2016 Not Available [Moles/Vol] 14:20-0500 (28661) Osmolality Calc 293 (no code) 11-15-2016 Not Availa ble [Osmolality] 14:20-0500 (46458) metabolic panel on 2016-11-15 Anion gap 14 mmol/L (no code) 3 - 11 mmol/L 11-15-2016 Not Avai lable [Moles/Vol] 14:20-0500 (84094) Calcium 9.2 mg/dL (no code) 8.5 - 10.2 mg/dL 11-15-2016 Not A vailable [Mass/Vol] 14:20-0500 (24121) Chloride 103 mmol/L (no code) 95 - 106 mmol/L 11-15-2016 Not A vailable [Moles/Vol] 14:20-0500 (56286) Creatinine 1.41 mg/dL (no code) 11-15-2016 Not Available [Mass/Vol] 14:20-0500 (68901) Glucose 204 mg/dL (H) 60 - 125 mg/dL 11-15-2016 Not Brit ilable [Mass/Vol] 14:20-0500 (51970) HbA1c (Bld) 8.30 % (H) 0 - 5.7 % 11-15-2016 Not Availa ble [Mass fraction] 14:20-0500 (27100) Potassium 5.3 mmol/L (no code) 3.7 - 5.2 mmol/L 11-15-2016 Not Available [Moles/Vol] 14:20-0500 (19322) Sodium 137 mmol/L (no code) 135 - 145 mmol/L 11-15-2016 Not Available [Moles/Vol] 14:20-0500 (00710) Urea nitrogen 27 mg/dL (H) 7 - 20 mg/dL 11-15-2016 Not A vailable [Mass/Vol] 14:20-0500 (47090) cardiac on 2016-11-15 Cholesterol 222 mg/dL (no code) 180 - 200 mg/dL 11-15-2016 Not Available [Mass/Vol] 14:20-0500 (16338) Cholesterol in 42 mg/dL (no code) 11-15-2016 Not Availab le HDL [Mass/Vol] 14:20-0500 (62372) Cholesterol in 136 mg/dL (H) 0 - 100 mg/dL 11-15-2016 Not Available LDL [Mass/Vol] 14:20-0500 (85504) Triglyceride 219 mg/dL (H) 0 - 150 mg/dL 11-15-2016 Not A vailable [Mass/Vol] 14:20-0500 ([id number]) Vital Signs The data below is from unstructured sources Vital Response Date/Time Temperature (Fahrenheit) 97.3 degree s F (97.6 - 99.5) 08/12/2015 10:00am Temperature (Calculated Celsius) 36. 69849 degrees C (36.4 - 37.5) 08/12/2015 10:00am Temperature Source Temporal 08/12/2015 10:00am Pulse Rate (adult) 57 bpm (60 - 90) 08/12/2015 10:00am Respiratory Rate 22 bpm (12 - 24) 08/12/2015 10:00am O2 Sat by Pulse Oximetry 97 % (88 - 100) 08/12/2015 10:00am Blood Pressure 165/86 mm Hg 08/12/2015 10:00am Blood Pressure Mean 112 mm Hg 08/12/2015 10:00am Pain Pain Intensity 0 2014 10:00am Height (Feet) 5 feet 2:16pm Height (Inches) 9.00 inches 08/11/2015 2:16pm Height (Calculated Centimeters) 175. 373185 cm 08/11/2015 2:16pm Weight (Pounds) 266 pounds 08/11/2015 2:16pm Weight (Calculated Grams) 587656.572 gm 08/11/2015 2:16pm Weight (Calculated Kilograms) 120.65 5572 kilograms 08/11/2015 2:16pm Calculated BMI 39.28 2:16pm Vital Response Date/Time Temperature (Fahrenheit) 98.1 degree s F (97.6 - 99.5) Temperature (Calculated Celsius) 36. 13231 degrees C (36.4 - 37.5) Temperature Source Temporal Pulse Rate (adult) 58 bpm (60 - 90) Respiratory Rate 20 bpm (12 - 24) O2 Sat by Pulse Oximetry 98 % (88 - 100) Blood Pressure 137/83 mm Hg Pain Pain Intensity 0 Height (Feet) 5 feet Height (Inches) 9.00 inches Height (Calculated Centimeters) 175. 893295 cm Weight (Pounds) 260 pounds Weight (Calculated Grams) 601478.017 gm Weight (Calculated Kilograms) 117.93 4017 kilograms Calculated BMI 39.57 Vital Response Date/Time Height (Feet) 5 feet 2:30pm Height (Inches) 8.00 inches 03/08/2019 2:30pm Height (Calculated Centimeters) 172. 916721 cm 03/08/2019 2:30pm Weight (Pounds) 325 pounds 03/08/2019 2:30pm Weight (Ounces) 0.0 oz 0 03/08/2019 2:30pm Weight (Calculated Grams) 588950.52 gm 03/08/2019 2:30pm Weight (Calculated Kilograms) 147.41 7522 kilograms 03/08/2019 2:30pm Calculated BMI 49.4 02/18 2:30pm Vital Response Date/Time Temperature (Fahrenheit) 97.9 degree s F (97.6 - 99.5) 03/10/2019 5:05pm Temperature (Calculated Celsius) 36. 24156 degrees C (36.4 - 37.5) 03/10/2019 5:05pm Temperature Source Tympanic 03/10/2019 5:05pm Pulse Rate (adult) 67 bpm (60 - 90) 03/10/2019 5:05pm Respiratory Rate 20 bpm (12 - 24) 03/10/2019 5:05pm O2 Sat by Pulse Oximetry 98 % (88 - 100) 03/10/2019 5:05pm Blood Pressure 124/76 mm Hg 03/10/2019 5:05pm Blood Pressure Mean 69 mm Hg (65 - 110) 03/10/2019 4:25pm Pain Pasero Opioid-induced Sedation Scale (POSS) Awake and alert 03/10/2019 1:18pm Numeric Pain Scale 0-No Pain 03/10/2019 5:05pm Pain Intensity 0 2018 5:05pm Height (Feet) 5 feet 1:08pm Height (Inches) 8.00 inches 03/10/2019 1:08pm Height (Calculated Centimeters) 172. 504181 cm 03/10/2019 1:08pm Weight (Pounds) 325 pounds 03/10/2019 1:08pm Weight (Ounces) 0.0 oz 0 03/10/2019 1:08pm Weight (Calculated Grams) 032816.52 gm 03/10/2019 1:08pm Weight (Calculated Kilograms) 147.41 7522 kilograms 03/10/2019 1:08pm Calculated BMI 49.4 02/18 1:08pm Weight Measurement Method Standing Scale 03/10/2019 1:08pm Vital Response Date/Time Temperature (Fahrenheit) 97.9 degree s F (97.6 - 99.5) 03/10/2019 5:05pm Temperature (Calculated Celsius) 36. 97833 degrees C (36.4 - 37.5) 03/10/2019 5:05pm Temperature Source Tympanic 03/10/2019 5:05pm Pulse Rate (adult) 67 bpm (60 - 90) 03/10/2019 5:05pm Respiratory Rate 20 bpm (12 - 24) 03/10/2019 5:05pm O2 Sat by Pulse Oximetry 98 % (88 - 100) 03/10/2019 5:05pm Blood Pressure 124/76 mm Hg 03/10/2019 5:05pm Blood Pressure Mean 69 mm Hg (65 - 110) 03/10/2019 4:25pm Pain Pasero Opioid-induced Sedation Scale (POSS) Awake and alert 03/10/2019 1:18pm Numeric Pain Scale 0-No Pain 03/10/2019 5:05pm Pain Intensity 0 2018 5:05pm Height (Feet) 5 feet 1:08pm Height (Inches) 8.00 inches 03/10/2019 1:08pm Height (Calculated Centimeters) 172. 286907 cm 03/10/2019 1:08pm Weight (Pounds) 325 pounds 03/10/2019 1:08pm Weight (Ounces) 0.0 oz 0 03/10/2019 1:08pm Weight (Calculated Grams) 758812.52 gm 03/10/2019 1:08pm Weight (Calculated Kilograms) 147.41 7522 kilograms 03/10/2019 1:08pm Calculated BMI 49.4 02/18 1:08pm Weight Measurement Method Standing Scale 03/10/2019 1:08pm Interventions No Information Plan of Treatment The data below is from unstructured sources Discharge Date 08/12/15 11:30am Disposition 01 HOME, SELF-CARE Instructions/Education Provided Acti ve Listening (DC) Forms Provided PDI Medical Prescriptions See Medication Section Care Plan and Goals See Discharge In structions Section Discharge Date 03/08/19 2:51pm Prescriptions See Medication Section Discharge Date 03/10/19 5:05pm Instructions/Education Provided ANES THESIA INSTRUCTIONS POSTOP Colon Polypectomy Prescriptions See Medication Section Discharge Date 03/10/19 5:05pm Instructions/Education Provided ANES THESIA INSTRUCTIONS POSTOP Colon Polypectomy Prescriptions See Medication Section Goals No Information Social History No Information Functional Status The data below is from unstructured sources Query Response Date Shahab rded Patient Orientation Person Place Time Situation Normal For Age August 12, 2015 12:08pm Comprehension Ability Understands Co ncepts August 11, 2015 9:00pm Query Response Date Shahab rded Patient Orientation Person Place Time March 01, 2015 8:43pm Comprehension Ability Understands Co ncepts March 02, 2015 8:51am Query Response Date Shahab rded Patient Orientation Person Place Time March 03, 2015 11:15am Comprehension Ability Understands Co ncepts March 02, 2015 8:51am Query Response Date Shahab rded Pasero Opioid-induced Sedation Scale (POSS) Awake and alert March 10, 2019 1:18pm Query Response Date Shahab rded Pasero Opioid-induced Sedation Scale (POSS) Awake and alert March 10, 2019 1:18pm Mental Status No Information Encounters Encounter Normalized Encounter Encounter Diagnosis Care Provi paramjit Organization Date Type 03-10-2019 Admission to day no information [employer] no organization name - surgery Phone: 03-10-2019 02-06-2013 Evaluation and no information no name no organ ization name - management of 02-07-2013 inpatient 08-03-2018 Patient encounter no information no name no or ganization name - 08-04-2018 04-30-2018 Patient encounter no information no name no or ganization name - 05-01-2018 03-03-2020 Patient encounter no information BENNETT DREW (no [facility] phone) [facility] (no 03-03-2020 phone) 12-29-2019 Patient encounter no information LATIA ERIC MD (no [facility] [address] procedure phone) [facility] (no phone) 10-29-2019 Patient encounter no information no name no or ganization name - procedure 10-29-2019 07-23-2019 Patient encounter no information no name no or ganization name - procedure 07-24-2019 03-10-2019 Patient encounter no information no name no or ganization name - procedure 03-10-2019 03-10-2019 Patient encounter no information MERCEDES BURRELL MD (n o [facility] [address] - procedure phone) [facility] 03-10-2019 (no phone) 03-09-2019 Patient encounter no information no name no or ganization name - procedure 03-10-2019 03-08-2019 Patient encounter no information MERCEDES [id number] Work no organization name - procedure Phone: 03-08-2019 [id number] 03-08-2019 Patient encounter no information MERCEDES BURRELL MD (n o [facility] [address] - procedure phone) [facility] 03-08-2019 (no phone) 12-08-2018 Patient encounter no information no name no or ganization name - procedure 12-09-2018 12-08-2018 Patient encounter no information no name no or ganization name - procedure 12-09-2018 10-24-2017 Patient encounter no information no name no or ganization name - procedure 10-25-2017 07-18-2017 Patient encounter no information no name no or ganization name procedure 07-18-2017 Patient encounter no information LATIA ERIC MD (no [facility] [address] procedure phone) [facility] (no phone) 11-15-2016 Patient encounter no information no name no or ganization name - procedure 11-16-2016 11-11-2014 Patient encounter no information no name no or ganization name procedure 11-11-2014 Patient encounter no information LUIS [facility] [address] procedure (no phone) [facility] (no phone) 12-29-2019 no information Encounter for other no name no organization name preprocedural examination Medical Equipment No Information Payers Normalized Payer Value Blue Cross Blue Shield no information [facility] Blue Shield [id number] ([id number]) Medicare no information Advance Directives Directive Response Recor ded Date/Time Advance Directives No 2:06pm Health Care Power of Sprayer Insecticide No 08/11/15 2:06pm Organ Donor Yes 08/11/15 2:06pm Resuscitation Status Full Code 08/11/15 2:06pm Directive Response Recor ded Date/Time Advance Directives No 11:30am Health Care Power of Sprayer Insecticide No 03/01/15 11:30am Organ Donor Yes 03/01/15 11:30am Resuscitation Status Full Code 03/01/15 11:30am Directive Response Recor ded Date/Time Advance Directives No 2:27pm Health Care Power of Sprayer Insecticide No 03/08/19 2:27pm Organ Donor Yes 08/11/15 2:06pm Resuscitation Status Full Code 03/08/19 2:27pm Directive Response Recor ded Date/Time Advance Directives No 1:15pm Health Care Power of Sprayer Insecticide No 03/10/19 1:15pm Organ Donor Yes 03/10/19 1:15pm Resuscitation Status Full Code 03/10/19 1:15pm Discharge Instructions Patient Instructions Physician Instructions Plan of Care/Instructions/FU: Continue a clear liquid diet. 7-Up, nirav chele, and Gatorade work well. After 24 hours if no further diarrhea or crampy abdominal pain, you may advance to a few soda crackers and then 2 small servings of chicken noodle soup. If this goes well you may add dry toast, mashed potatoes, steamed rice in small servings. This should take about a day. If no further abdominal complaints at that time he may advance to a bland diet. ([employer] [place] chicken breast and mashed potatoes) at that point you should be able to return to your usual diet Activity as Tolerated: Yes Goal: Resolution of symptoms Return to The Hospital For: Increasing pain or symptoms Other Inst to Patient Take your fingerstick blood sugars as previously. Resume your previous medications. No hospital discharge instructions.No hospital discharge instructions. Patient Instructions Physician Instructions Plan of Care/Instructions/FU: Continue a clear liquid diet. 7-Up, nirav chele, and Gatorade work well. After 24 hours if no further diarrhea or crampy abdominal pain, you may advance to a few soda crackers and then 2 small servings of chicken noodle soup. If this goes well you may add dry toast, mashed potatoes, steamed rice in small servings. This should take about a day. If no further abdominal complaints at that time he may advance to a bland diet. ([employer] chicken breast and mashed potatoes) at that point you should be able to return to your usual diet Activity as Tolerated: Yes Goal: Resolution of symptoms Return to The Hospital For: Increasing pain or symptoms Other Inst to Patient Take your fingerstick blood sugars as previously. Resume your previous medications. No hospital discharge instruction information available.No hospital discharge instruction information available. Additional Source Comments This clinical document has been generated using [employer] software that has been certified by the Office of the National Coordinator for Health Information Technology (ONC 15.99.04.3023.Diam.31.00.0.060911) and the National Committee for Inseam Trimming Machine Operator (NCQA, as an eMeasure certified technology). FOR RECORDS PERTAINING TO PATIENTS WHO ARE OR HAVE BEEN ENROLLED IN A CHEMICAL D EPENDENCY/SUBSTANCE ABUSE PROGRAM, SOME INFORMATION MAY BE OMITTED. This clinica l summary was aggregated from multiple sources. Caution should be exercised in using it in the provision of clinical care. This summary normalizes information from multiple sources, and as a consequence, information in this document may ma terially change the coding, format and clinical context of patient data. In saranya tion, data may be omitted in some cases. CLINICAL DECISIONS SHOULD BE BASED ON T HE PRIMARY CLINICAL RECORDS. [employer] [facility]. provides no warranty or guara ntee of the accuracy or completeness of information in this document.The followi ng information is based on time limited clinical information
--- OUTSIDE RECORDS SUMMARY | 2020-04-17 20:57 | XMS REPORT | Continuity of Care Document ---
Author Organization Unknown Address Unknown Phone Unavailable Allergies Active Description Code Type Severity Reaction Onset Reported/Identified Relationship to Patient Clinical Status Yes AMARYL UNKNOWN GI PROBLEMS - NAUSEA Yes AMARYL UNKNOWN UNKNOWN Yes HALDOL UNKNOWN OTHER Yes HALDOL UNKNOWN UNKNOWN Yes METFORMIN UNKNOWN GI PROBLEMS - DIARRH Yes METFORMIN UNKNOWN UNKNOWN Yes glimepiride [id number] Drug Aller gy Unknown Diarrhea 03/10/2019 Yes haloperidol [id number] Drug Aller gy Unknown N/A 03/10/2019 Yes Haloperidol Lactate [id number] Drug Allergy Unknown N/A 03/10/2019 Yes metformin [id number] Drug Allergy Unknown N/A 03/10/2019 Medications There is no data. Problems Date Dx Coded Attending Type Code Diagnosis Diagnosed By 07/05/2011 Ot 250.00 07/05/2011 Ot 272.4 07/05/2011 Ot 278.00 07/05/2011 Ot 401.9 07/05/2011 Ot 746.85 07/05/2011 Ot 786.09 07/05/2011 Ot 786.50 07/05/2011 Ot V15.82 07/05/2011 Ot V17.49 07/05/2011 Ot V58.66 07/05/2011 Ot V58.69 02/07/2013 Ot 250.00 JEANNIE B MAIKEL WO COMPL, TYPE II OR UNSPEC TY 02/07/2013 Ot 272.4 HYPE RLIPIDEMIA NEC/NOS 02/07/2013 Ot 278.00 OBE SITY, NOS 02/07/2013 Ot 401.9 HYPE RTENSION NOS 02/07/2013 Ot 414.01 COR ONARY ATHEROSCLEROSIS OF [place] CORON 02/07/2013 Ot 721.8 SPIN AL DISORDERS NEC 02/07/2013 Ot 723.0 CERV ICAL SPINAL STENOSIS 02/07/2013 Ot V85.42 BOD Y MASS INDEX 45.0-49.9, ADULT 11/30/2014 ESTRADALUIS ANN MD Ot 787.03 11/30/2014 LUIS ESTRADA MD Ot 787.91 11/30/2014 LUIS ESTRADA MD Ot 789.01 02/28/2015 LUIS ESTRADA MD Ot 787.03 02/28/2015 LUIS ESTRADA MD Ot 787.91 02/28/2015 LUIS ESTRADA MD Ot 789.01 03/02/2015 LATIA ERIC MD Ot 250. 00 DIAB MAIKEL WO COMPL, TYPE II OR UNSPEC TY 03/02/2015 LATIA ERIC MD Ot 272. 4 HYPERLIPIDEMIA NEC/NOS 03/02/2015 LATIA ERIC MD Ot 278. 00 OBESITY, NOS 03/02/2015 LATIA ERIC MD Ot 401. 9 HYPERTENSION NOS 03/02/2015 LATIA ERIC MD Ot 414. 01 CORONARY ATHEROSCLEROSIS OF [place] CORON 03/02/2015 LATIA ERIC MD Ot 780. 2 SYNCOPE AND COLLAPSE 03/02/2015 LATIA ERIC MD Ot 786. 50 CHEST PAIN NOS 03/02/2015 LATIA ERIC MD Ot V15. 82 HISTORY OF TOBACCO USE 03/02/2015 LATIA ERIC MD Ot V58. 69 OT MED,LT,CURRENT USE 03/02/2015 LATIA ERIC MD Ot V85. 38 BODY MASS INDEX 38.0-38.9, ADULT 04/07/2015 LATIA ERIC MD Ot 272. 4 04/07/2015 LATIA ERIC MD Ot 401. 9 04/07/2015 LATIA ERIC MD Ot 414. 00 04/07/2015 LATIA ERIC MD Ot 786. 50 08/12/2015 HECTOR FUNG MD Ot E11 .9 TYPE 2 DIABETES MELLITUS WITHOUT COMPLIC 08/12/2015 HECTOR FUNG MD Ot I10 ESSENTIAL (PRIMARY) HYPERTENSION 08/12/2015 HECTOR FUNG MD Ot K52 .9 NONINFECTIVE GASTROENTERITIS AND COLITIS 08/12/2015 HECTOR FUNG MD Ot Z23 ENCOUNTER FOR IMMUNIZATION 07/11/2017 LUIS ESTRADA MD Ot 787.03 VOMITING ALONE 07/11/2017 LUIS ESTRADA MD Ot 787.91 DIARRHEA 07/11/2017 LUIS ESTRADA MD Ot 789.01 ABDOMINAL PAIN, RIGHT UPPER QUADRANT 07/11/2017 LATIA ERIC MD Ot 272. 4 HYPERLIPIDEMIA NEC/NOS 07/11/2017 LATIA ERIC MD Ot 401. 9 HYPERTENSION NOS 07/11/2017 LATIA ERIC MD Ot 414. 00 CORON ATHEROSCLER NOS TYPE VESSEL, NATIV 07/11/2017 LATIA ERIC MD Ot 786. 50 CHEST PAIN NOS 07/30/2017 LATIA ERIC MD Ot E11. 9 TYPE 2 DIABETES MELLITUS WITHOUT COMPLIC 07/30/2017 LATIA ERIC MD Ot I10 ESSENTIAL (PRIMARY) HYPERTENSION 07/30/2017 LATIA ERIC MD Ot I25. 10 ATHSCL HEART DISEASE OF [place] CORONARY 07/30/2017 LATIA ERIC MD Ot R07. 9 CHEST PAIN, UNSPECIFIED 07/30/2017 LATIA ERIC MD Ot R09. 89 OTH SYMPTOMS AND SIGNS INVOLVING THE CIR 10/24/2017 Georgia Jacobson 250.00 DIABETES MELLITUS WITHOUT MENTION OF COMPLICATION, TYPE II OR UNSPECIFIED TYPE, NOT STATED UNCONTROLLED 10/24/2017 Georgia Jacobson 272.8 OTHER DISORDERS OF LIPOID METABOLISM 10/24/2017 Georgia Jacobson 401.9 UNSPECIFIED ESSENTIAL HYPERTENSION 10/24/2017 Georgia Jacobson E11.9 TYPE 2 DIABETES MELLITUS WITHOUT COMPLICATIONS 10/24/2017 Georgia Jacobson E78.5 HYPERLIPIDEMIA, UNSPECIFIED 10/24/2017 Georgia Jacobson I10 ESSENTIAL (PRIMARY) HYPERTENSION 10/24/2017 Georgia Jacobson W 250.00 DIABETES MELLITUS WITHOUT MENTION OF COMPLICATION, TYPE II OR UNSPECIFIED TYPE, NOT STATED UNCONTROLLED 10/24/2017 Georgia Jacobson 272.8 OTHER DISORDERS OF LIPOID METABOLISM 10/24/2017 Georgia Jacobson 401.9 UNSPECIFIED ESSENTIAL HYPERTENSION 10/24/2017 Georgia Jacobson E11.9 TYPE 2 DIABETES MELLITUS WITHOUT COMPLICATIONS 10/24/2017 Georgia Jacobson E78.5 HYPERLIPIDEMIA, UNSPECIFIED 10/24/2017 Georgia Jacobson I10 ESSENTIAL (PRIMARY) HYPERTENSION 10/24/2017 W 250.00 JEANNIE BETES MELLITUS WITHOUT MENTION OF COMPLICATION, TYPE II OR UNSPECIFIED TYPE, NOT STATED UNCONTROLLED 10/24/2017 W 272.8 OTHE R DISORDERS OF LIPOID METABOLISM 10/24/2017 W 401.9 UNSP ECIFIED ESSENTIAL HYPERTENSION 10/24/2017 W 530.81 ESO PHAGEAL REFLUX 10/24/2017 W 564.1 IRRI TABLE BOWEL SYNDROME 10/24/2017 W E11.9 TYPE 2 DIABETES MELLITUS WITHOUT COMPLICATIONS 10/24/2017 W E78.5 HYPE RLIPIDEMIA, UNSPECIFIED 10/24/2017 W I10 ESSENT IAL (PRIMARY) HYPERTENSION 10/24/2017 W K21.0 ISAEL RO-ESOPHAGEAL REFLUX DISEASE WITH ESOPHAGITIS 10/24/2017 W K58.0 IRRI TABLE BOWEL SYNDROME WITH DIARRHEA 04/30/2018 LUIS ESTRADA 250.80 DIABETES MELLITUS WITH OTHER SPECIFIED MANIFESTATIONS, TYPE II OR UNSPECIFIED TYPE, NOT STATED UNCONTROLLED 04/30/2018 LUIS ESTRADA W 401.0 MALIGNANT ESSENTIAL HYPERTENSION 04/30/2018 LUIS ESTRADA W 414.01 CORONARY ATHEROSCLEROSIS OF [place] CORONARY ARTERY 04/30/2018 LUIS ESTRADA A E11.65 TYPE 2 DIABETES MELLITUS WITH HYPERGLYCEMIA 04/30/2018 LUIS ESTRADA W I10 ESSENTIAL (PRIMARY) HYPERTENSION 04/30/2018 LUIS ESTRADA W I25.10 ATHEROSCLEROTIC HEART DISEASE OF [place] CORONARY ARTERY WITHOUT ANGINA PECTORIS 04/30/2018 LUIS ESTRADA A 250.80 DIABETES MELLITUS WITH OTHER SPECIFIED MANIFESTATIONS, TYPE II OR UNSPECIFIED TYPE, NOT STATED UNCONTROLLED 04/30/2018 LUIS ESTRADA W 401.0 MALIGNANT ESSENTIAL HYPERTENSION 04/30/2018 LUIS ESTRADA W 414.01 CORONARY ATHEROSCLEROSIS OF [place] CORONARY ARTERY 04/30/2018 LUIS ESTRADA A E11.65 TYPE 2 DIABETES MELLITUS WITH HYPERGLYCEMIA 04/30/2018 LUIS ESTRADA W I10 ESSENTIAL (PRIMARY) HYPERTENSION 04/30/2018 LUIS ESTRADA W I25.10 ATHEROSCLEROTIC HEART DISEASE OF [place] CORONARY ARTERY WITHOUT ANGINA PECTORIS 04/30/2018 A 250.80 JEANNIE BETES MELLITUS WITH OTHER SPECIFIED MANIFESTATIONS, TYPE II OR UNSPECIFIED TYPE, NOT STATED UNCONTROLLED 04/30/2018 W 401.0 ALMITA GNANT ESSENTIAL HYPERTENSION 04/30/2018 W 414.01 COR ONARY ATHEROSCLEROSIS OF [place] CORONARY ARTERY 04/30/2018 A E11.65 TYP E 2 DIABETES MELLITUS WITH HYPERGLYCEMIA 04/30/2018 W I10 ESSENT IAL (PRIMARY) HYPERTENSION 04/30/2018 W I25.10 ATH EROSCLEROTIC HEART DISEASE OF [place] CORONARY ARTERY WITHOUT ANGINA PECTORIS 04/30/2018 FRANKLIN ESTRADAHEL A 250.80 DIABETES MELLITUS WITH OTHER SPECIFIED MANIFESTATIONS, TYPE II OR UNSPECIFIED TYPE, NOT STATED UNCONTROLLED 04/30/2018 ESTRADALUIS ANN W 401.0 MALIGNANT ESSENTIAL HYPERTENSION 04/30/2018 ESTRADA LUIS W 414.01 CORONARY ATHEROSCLEROSIS OF [place] CORONARY ARTERY 04/30/2018 ESTRADALUIS ANN A E11.65 TYPE 2 DIABETES MELLITUS WITH HYPERGLYCEMIA 04/30/2018 LUIS ESTRADA W I10 ESSENTIAL (PRIMARY) HYPERTENSION 04/30/2018 ESTRADA, LUIS W I25.10 ATHEROSCLEROTIC HEART DISEASE OF [place] CORONARY ARTERY WITHOUT ANGINA PECTORIS 12/08/2018 Georgia Jacobson 250.00 DIABETES MELLITUS WITHOUT MENTION OF COMPLICATION, TYPE II OR UNSPECIFIED TYPE, NOT STATED UNCONTROLLED 12/08/2018 Georgia Jacobson 272.4 OTHER AND UNSPECIFIED HYPERLIPIDEMIA 12/08/2018 Georgia Jacobson 401.0 MALIGNANT ESSENTIAL HYPERTENSION 12/08/2018 Georgia Jacobson E11.9 TYPE 2 DIABETES MELLITUS WITHOUT COMPLICATIONS 12/08/2018 Georgia Jacobson E78.5 HYPERLIPIDEMIA, UNSPECIFIED 12/08/2018 Georgia Jacobson I10 ESSENTIAL (PRIMARY) HYPERTENSION 12/08/2018 Georgia Jacobson V76.44 SCREENING FOR MALIGNANT NEOPLASMS OF PROSTATE 12/08/2018 Georgia Jacobson Z12.5 ENCOUNTER FOR SCREENING FOR MALIGNANT NEOPLASM OF PROSTATE 12/08/2018 W 250.00 JEANNIE BETES MELLITUS WITHOUT MENTION OF COMPLICATION, TYPE II OR UNSPECIFIED TYPE, NOT STATED UNCONTROLLED 12/08/2018 W 272.4 OTHE R AND UNSPECIFIED HYPERLIPIDEMIA 12/08/2018 W 401.0 ALMITA GNANT ESSENTIAL HYPERTENSION 12/08/2018 W E11.9 TYPE 2 DIABETES MELLITUS WITHOUT COMPLICATIONS 12/08/2018 W E78.5 HYPE RLIPIDEMIA, UNSPECIFIED 12/08/2018 W I10 ESSENT IAL (PRIMARY) HYPERTENSION 12/08/2018 W V76.44 SCR EENING FOR MALIGNANT NEOPLASMS OF PROSTATE 12/08/2018 W Z12.5 ENCO UNTER FOR SCREENING FOR MALIGNANT NEOPLASM OF PROSTATE 03/05/2019 NATALIE MONZON, LUIS León Ot 787.03 VOMITING ALONE 03/05/2019 NATALIE MONZON, LUIS León Ot 787.91 DIARRHEA 03/05/2019 NATALIE MONZON, LUIS León Ot 789.01 ABDOMINAL PAIN, RIGHT UPPER QUADRANT 03/05/2019 LATIA ERIC MD Ot 272. 4 HYPERLIPIDEMIA NEC/NOS 03/05/2019 LATIA ERIC MD Ot 401. 9 HYPERTENSION NOS 03/05/2019 LATIA ERIC MD Ot 414. 00 CORON ATHEROSCLER NOS TYPE VESSEL, NATIV 03/05/2019 LATIA ERIC MD Ot 786. 50 CHEST PAIN NOS 03/05/2019 LATIA ERIC MD Ot E11. 9 TYPE 2 DIABETES MELLITUS WITHOUT COMPLIC 03/05/2019 LATIA ERIC MD Ot I10 ESSENTIAL (PRIMARY) HYPERTENSION 03/05/2019 LATIA ERIC MD, Ot I25. 10 ATHSCL HEART DISEASE OF [place] CORONARY 03/05/2019 LATIA ERIC MD Ot R07. 9 CHEST PAIN, UNSPECIFIED 03/05/2019 LATIA ERIC MD Ot R09. 89 OTH SYMPTOMS AND SIGNS INVOLVING THE CIR 03/08/2019 MERCEDES BURERLL MD Ot Z01.81 8 ENCOUNTER FOR OTHER PREPROCEDURAL EXAMIN 03/09/2019 MERCEDES BURRELL MD, Ot Z01.81 8 ENCOUNTER FOR OTHER PREPROCEDURAL EXAMIN 03/10/2019 MERCEDES BURRELL MD, Ot D12.5 BENIGN NEOPLASM OF SIGMOID COLON 03/10/2019 MERCEDES BURRELL MD, Ot E78.00 PURE HYPERCHOLESTEROLEMIA, UNSPECIFIED 03/10/2019 MERCEDES BURRELL MD, Ot I10 ESSENTIAL (PRIMARY) HYPERTENSION 03/10/2019 MERCEDES BURRELL MD, Ot I25.10 ATHSCL HEART DISEASE OF [place] CORONARY 03/10/2019 MERCEDES BURRELL MD, Ot I25.2 OLD MYOCARDIAL INFARCTION 03/10/2019 MERCEDES BURRELL MD, Ot J44.9 CHRONIC OBSTRUCTIVE PULMONARY DISEASE, U 03/10/2019 MERCEDES BURRELL MD, Ot K21.0 GASTRO-ESOPHAGEAL REFLUX DISEASE WITH ES 03/10/2019 MERCEDES BURRELL MD, Ot K29.50 UNSPECIFIED CHRONIC GASTRITIS WITHOUT BL 03/10/2019 MERCEDES BURRELL MD, Ot K44.9 DIAPHRAGMATIC HERNIA WITHOUT OBSTRUCTION 03/10/2019 MERCEDES BURRELL MD, Ot K57.30 DVRTCLOS OF LG INT W/O PERFORATION OR AB 03/10/2019 MERCEDES BURRELL MD, Ot K64.1 SECOND DEGREE HEMORRHOIDS 03/10/2019 MERCEDES BURRELL MD, Ot Z12.11 ENCOUNTER FOR SCREENING FOR MALIGNANT NE 03/10/2019 MERCEDES BURRELL MD, Ot Z79.82 HOME DESIGNER (CURRENT) USE OF ASPIRIN 03/10/2019 MERCEDES BURRELL MD, Ot Z79.84 [facility]CI (CURRENT) USE OF ORAL HYPOGLYC 03/10/2019 MERCEDES BURRELL MD, Ot Z79.89 9 OTHER [facility] (CURRENT) DRUG THERAPY 03/10/2019 MERCEDES BURRELL MD, Ot Z87.19 PERSONAL HISTORY OF OTHER DISEASES OF TH 03/16/2019 MERCEDES BURRELL MD, Ot D12.5 BENIGN NEOPLASM OF SIGMOID COLON 03/16/2019 MERCEDES BURRELL MD, Ot E78.00 PURE HYPERCHOLESTEROLEMIA, UNSPECIFIED 03/16/2019 MERCEDES BURRELL MD, Ot I10 ESSENTIAL (PRIMARY) HYPERTENSION 03/16/2019 MERCEDES BURRELL MD, Ot I25.10 ATHSCL HEART DISEASE OF [place] CORONARY 03/16/2019 MERCEDES BURRELL MD, Ot I25.2 OLD MYOCARDIAL INFARCTION 03/16/2019 MERCEDES BURRELL MD, Ot J44.9 CHRONIC OBSTRUCTIVE PULMONARY DISEASE, U 03/16/2019 MERCEDES BURRELL MD, Ot K21.0 GASTRO-ESOPHAGEAL REFLUX DISEASE WITH ES 03/16/2019 MERCEDES BURRELL MD, Ot K29.50 UNSPECIFIED CHRONIC GASTRITIS WITHOUT BL 03/16/2019 MERCEDES BURRELL MD, Ot K44.9 DIAPHRAGMATIC HERNIA WITHOUT OBSTRUCTION 03/16/2019 MERCEDES BURRELL MD, Ot K57.30 DVRTCLOS OF LG INT W/O PERFORATION OR AB 03/16/2019 MERCEDES BURRELL MD, Ot K64.1 SECOND DEGREE HEMORRHOIDS 03/16/2019 MERCEDES BURRELL MD, Ot Z12.11 ENCOUNTER FOR SCREENING FOR MALIGNANT NE 03/16/2019 MERCEDES BURRELL MD, Ot Z79.82 HOME DESIGNER (CURRENT) USE OF ASPIRIN 03/16/2019 MERCEDES BURRELL MD, Ot Z79.84 HOME DESIGNER (CURRENT) USE OF ORAL HYPOGLYC 03/16/2019 MERCEDES BURRELL MD, Ot Z79.89 9 OTHER [facility] (CURRENT) DRUG THERAPY 03/16/2019 MERCEDES BURRELL MD, Ot Z87.19 PERSONAL HISTORY OF OTHER DISEASES OF TH 12/29/2019 NATALIE MONZON, LUIS León Ot 787.03 VOMITING ALONE 12/29/2019 NATALIE MONZON, LUIS L Ot 787.91 DIARRHEA 12/29/2019 NATALIE MONZON, LUIS León Ot 789.01 ABDOMINAL PAIN, RIGHT UPPER QUADRANT 12/29/2019 LATIA ERIC MD Ot 272. 4 HYPERLIPIDEMIA NEC/NOS 12/29/2019 LATIA ERIC MD Ot 401. 9 HYPERTENSION NOS 12/29/2019 LATIA ERIC MD Ot 414. 00 CORON ATHEROSCLER NOS TYPE VESSEL, NATIV 12/29/2019 LATIA ERIC MD Ot 786. 50 CHEST PAIN NOS 12/29/2019 LATIA ERIC MD Ot E11. 9 TYPE 2 DIABETES MELLITUS WITHOUT COMPLIC 12/29/2019 LATIA ERIC MD Ot I10 ESSENTIAL (PRIMARY) HYPERTENSION 12/29/2019 LATIA ERIC MD Ot I25. 10 ATHSCL HEART DISEASE OF [place] CORONARY 12/29/2019 LATIA ERIC MD Ot R07. 9 CHEST PAIN, UNSPECIFIED 12/29/2019 LATIA ERIC MD Ot R09. 89 OTH SYMPTOMS AND SIGNS INVOLVING THE CIR 12/31/2019 LATIA ERIC MD Ot E11. 9 TYPE 2 DIABETES MELLITUS WITHOUT COMPLIC 12/31/2019 LATIA ERIC MD Ot E78. 2 MIXED HYPERLIPIDEMIA 12/31/2019 LATIA ERIC MD Ot I10 ESSENTIAL (PRIMARY) HYPERTENSION 12/31/2019 LATIA ERIC MD Ot I25. 10 ATHSCL HEART DISEASE OF [place] CORONARY 12/31/2019 LATIA ERIC MD Ot I44. 4 LEFT ANTERIOR FASCICULAR BLOCK 04/17/2020 NATALIE MONZON, LUIS León Ot 787.03 VOMITING ALONE 04/17/2020 LUIS ESTRADA MD Ot 787.91 DIARRHEA 04/17/2020 LUIS ESTRADA MD Ot 789.01 ABDOMINAL PAIN, RIGHT UPPER QUADRANT 04/17/2020 LATIA ERIC MD Ot 272. 4 HYPERLIPIDEMIA NEC/NOS 04/17/2020 LATIA ERIC MD Ot 401. 9 HYPERTENSION NOS 04/17/2020 LATIA ERIC MD Ot 414. 00 CORON ATHEROSCLER NOS TYPE VESSEL, NATIV 04/17/2020 LATIA ERIC MD Ot 786. 50 CHEST PAIN NOS 04/17/2020 LATIA ERIC MD Ot E11. 9 TYPE 2 DIABETES MELLITUS WITHOUT COMPLIC 04/17/2020 LATIA ERIC MD Ot I10 ESSENTIAL (PRIMARY) HYPERTENSION 04/17/2020 LATIA ERIC MD Ot I25. 10 ATHSCL HEART DISEASE OF [place] CORONARY 04/17/2020 LATIA ERIC MD Ot R07. 9 CHEST PAIN, UNSPECIFIED 04/17/2020 LATIA ERIC MD Ot R09. 89 OTH SYMPTOMS AND SIGNS INVOLVING THE CIR 04/17/2020 LATIA ERIC MD Ot E11. 9 TYPE 2 DIABETES MELLITUS WITHOUT COMPLIC 04/17/2020 LAITA ERIC MD Ot E78. 2 MIXED HYPERLIPIDEMIA 04/17/2020 LATIA ERIC MD Ot I10 ESSENTIAL (PRIMARY) HYPERTENSION 04/17/2020 LATIA ERIC MD Ot I25. 10 ATHSCL HEART DISEASE OF [place] CORONARY 04/17/2020 LATIA ERIC MD Ot I44. 4 LEFT ANTERIOR FASCICULAR BLOCK 04/17/2020 NATALIE MONZON, LUIS L Ot 787.03 VOMITING ALONE 04/17/2020 NATALIE MONZON, LUIS L Ot 787.91 DIARRHEA 04/17/2020 NATALIE MONZON, LUIS L Ot 789.01 ABDOMINAL PAIN, RIGHT UPPER QUADRANT 04/17/2020 LATIA ERIC MD Ot 272. 4 HYPERLIPIDEMIA NEC/NOS 04/17/2020 LATIA ERIC MD Ot 401. 9 HYPERTENSION NOS 04/17/2020 LATIA ERIC MD Ot 414. 00 CORON ATHEROSCLER NOS TYPE VESSEL, NATIV 04/17/2020 LATIA ERIC MD Ot 786. 50 CHEST PAIN NOS 04/17/2020 LATIA ERIC MD Ot E11. 9 TYPE 2 DIABETES MELLITUS WITHOUT COMPLIC 04/17/2020 LATIA ERIC MD Ot I10 ESSENTIAL (PRIMARY) HYPERTENSION 04/17/2020 LATIA ERIC MD Ot I25. 10 ATHSCL HEART DISEASE OF [place] CORONARY 04/17/2020 LATIA ERIC MD Ot R07. 9 CHEST PAIN, UNSPECIFIED 04/17/2020 LATIA ERIC MD Ot R09. 89 OTH SYMPTOMS AND SIGNS INVOLVING THE CIR 04/17/2020 LATIA ERIC MD Ot E11. 9 TYPE 2 DIABETES MELLITUS WITHOUT COMPLIC 04/17/2020 LATIA ERIC MD Ot E78. 2 MIXED HYPERLIPIDEMIA 04/17/2020 LATIA ERIC MD Ot I10 ESSENTIAL (PRIMARY) HYPERTENSION 04/17/2020 LATIA ERIC MD Ot I25. 10 ATHSCL HEART DISEASE OF [place] CORONARY 04/17/2020 LATIA ERIC MD Ot I44. 4 LEFT ANTERIOR FASCICULAR BLOCK 04/17/2020 NATALIE MONZON, LUIS L Ot 787.03 VOMITING ALONE 04/17/2020 NATALIE MONZON, LUIS L Ot 787.91 DIARRHEA 04/17/2020 NATALIE MONZON, LUIS L Ot 789.01 ABDOMINAL PAIN, RIGHT UPPER QUADRANT 04/17/2020 LATIA ERIC MD Ot 272. 4 HYPERLIPIDEMIA NEC/NOS 04/17/2020 LATIA ERIC MD Ot 401. 9 HYPERTENSION NOS 04/17/2020 LATIA ERIC MD Ot 414. 00 CORON ATHEROSCLER NOS TYPE VESSEL, NATIV 04/17/2020 LATIA ERIC MD Ot 786. 50 CHEST PAIN NOS 04/17/2020 LATIA ERIC MD Ot E11. 9 TYPE 2 DIABETES MELLITUS WITHOUT COMPLIC 04/17/2020 LATIA ERIC MD Ot I10 ESSENTIAL (PRIMARY) HYPERTENSION 04/17/2020 LATIA ERIC MD Ot I25. 10 ATHSCL HEART DISEASE OF [place] CORONARY 04/17/2020 LATIA ERIC MD Ot R07. 9 CHEST PAIN, UNSPECIFIED 04/17/2020 LATIA ERIC MD Ot R09. 89 OTH SYMPTOMS AND SIGNS INVOLVING THE CIR 04/17/2020 LATIA ERIC MD Ot E11. 9 TYPE 2 DIABETES MELLITUS WITHOUT COMPLIC 04/17/2020 LATIA ERIC MD Ot E78. 2 MIXED HYPERLIPIDEMIA 04/17/2020 LATIA ERIC MD Ot I10 ESSENTIAL (PRIMARY) HYPERTENSION 04/17/2020 LATIA ERIC MD Ot I25. 10 ATHSCL HEART DISEASE OF [place] CORONARY 04/17/2020 LATIA ERIC MD Ot I44. 4 LEFT ANTERIOR FASCICULAR BLOCK Procedures There is no data. Results Test Result Range Lipid Panel - 11/15/16 13:20 C/HDL 5.3 3.7-6.7 Cholesterol 222 mg/dL 100-240 HDL 42 mg/dL 30-85 LDL-Calculated 136 mg/dL 0-100 Trig 219 mg/dL 35-160 VLDL 44 mg/dL 0-42 Microalbumin - 11/15/16 13:20 Microalb 104.0 mg/L 0.0-20.0 PSA Yearly Screen - 10/24/17 08:45 PSA TOTAL 1.2 ng/mL 0.0-4.0 Hemoglobin A1C - 04/30/18 14:15 % A1C 7.70 % 5.40-6.60 AvGlu 197 mg/dL 70-110 Comprehensive Metabolic Panel - 08/03/18 10:45 Albumin 4.3 g/dL 3.6-5.1 ALP 44 U/L 35-130 ALT 28 U/L 6-45 Anion Gap 15 6-14 AST 29 U/L 2-40 BUN 19 mg/dL 5-25 Calcium 9.7 mg/dL 8.3-10.4 Chloride 102 mmol/L 95-114 CO2 27 mEq/L 22-33 Creat 1.22 mg/dL 0.50-1.50 eGFR 60 mL/min/1.73m2 >59 Globulin 3.0 g/dL 2.3-3.5 Glucose 155 mg/dL 70-110 Osmo 292 280-295 Potassium 5.0 mmol/L 3.5-5.3 Sodium 139 mmol/L 134-148 TBil 1.1 mg/dL 0.2-1.2 TP 7.3 g/dL 6.0-8.3 PSA Yearly Screen - 12/08/18 09:25 PSA TOTAL 0.9 ng/mL 0.0-4.0 Hemoglobin A1C - 03/09/19 09:30 % A1C 8.20 % 5.40-6.60 AvGlu 214 mg/dL 70-110 Comprehensive metabolic panel - 12/29/19 13:09 Serum or plasma sodium measurement (moles/volume) 137 mmol/L 135-145 Serum or plasma potassium measurement (moles/volume) 4.7 mmol/L 3.6-5.0 Serum or plasma chloride measurement (moles/volume) 100 mmol/L 98-107 Carbon dioxide 25 mmol/L 21-32 Serum or plasma anion gap determination (moles/volume) 12 mmol/L 5-14 Serum or plasma urea nitrogen measurement (mass/volume ) 21 mg/dL 7-18 Serum or plasma creatinine measurement (mass/volume) 1.33 mg/dL 0.60-1.30 Serum or plasma urea nitrogen/creatinine mass ratio 16 NRG Serum or plasma creatinine measurement w ith calculation of estimated glomerular filtration rate 54 NRG Serum or plasma glucose measurement (mass/volume) 190 mg/dL 70-105 Serum or plasma calcium measurement (mass/volume) 10.0 mg/dL 8.5-10.1 Serum or plasma total bilirubin measurement (mass/volu me) 0.9 mg/dL 0.1-1.0 Serum or plasma alkaline phosphatase maynor surement (enzymatic activity/volume) 57 U/L 40-136 Serum or plasma aspartate aminotransfera se measurement (enzymatic activity/volume) 32 U/L 5-34 Serum or plasma alanine aminotransferase measurement (enzymatic activity/volume) 31 U/L 0-55 Serum or plasma protein measurement (mass/volume) 7.6 g/dL 6.4-8.2 Serum or plasma albumin measurement (mass/volume) 4.4 g/dL 3.2-4.5 CALCIUM CORRECTED 9.7 mg/dL 8.5-10.1 Lipid 1996 panel - 12/29/19 13:09 Serum or plasma triglyceride measurement (mass/volume) 109 mg/dL <150 Serum or plasma cholesterol measurement (mass/volume) 114 mg/dL < 200 Serum or plasma cholesterol in HDL measurement (mass/v olume) 38 mg/dL 40-60 Cholesterol in LDL [mass/volume] in serum or plasma by direct assay 68 mg/dL 1-129 Serum or plasma cholesterol in VLDL measurement (mass/ volume) 22 mg/dL 5-40 Encounters ACCT No. Visit Date/Time Discharge Status Pt. Type Provider Facility Loc./Unit Complaint [id number] 03/03/2020 16:20:00 03/03/2020 23:59 :00 DIS Outpatient Georgia Jacobson [id number] 10/29/2019 16:18:00 10/29/2019 23:59 :00 DIS Outpatient Georgia Jacobson [id number] 07/23/2019 15:00:00 07/23/2019 23:59: 00 DIS Outpatient Georgia Jacobson [id number] 03/09/2019 12:14:00 03/09/2019 23:59: 00 DIS Outpatient LUIS ESTRADA [id number] 12/08/2018 10:43:00 12/08/2018 23:59: 00 DIS Outpatient Georgia Jacobson [id number] 08/03/2018 11:32:00 08/03/2018 23:59: 00 DIS Outpatient LATIA ERIC [id number] 04/30/2018 18:51:00 04/30/2018 23:59: 00 DIS Outpatient LUIS ESTRADA [id number] 10/24/2017 08:45:00 10/24/2017 23:59: 00 DIS Outpatient Georgia Jacobson [id number] 11/15/2016 14:21:00 11/15/2016 23:59: 00 DIS Outpatient LUIS ESTRADA [id number] 12/08/2018 09:06:00 Document Registration [id number] 04/30/2018 14:00:00 Document Registration [id number] 10/24/2017 08:30:00 Document Registration [id number] 12/29/2019 13:01:00 020 23:59:59 CLS Outpatient LATIA ERIC MD [facility] LAB FS CMP LIPID [id number] 03/10/2019 12:19:00 019 17:05:00 DIS Outpatient MERCEDES BURRELL MD [facility] ENDO DIARRHEA/CHANGE IN CHAMP L HABITS/DYSPHAGIA [id number] 03/08/2019 07:08:00 019 14:51:00 DIS Outpatient MERCEDES BURRELL MD [facility] PREOP COLONOSCOPY/EGD [id number] 01/27/2018 07:42:00 018 23:59:59 CLS Preadmit LATIA ERIC MD [facility] CARD CAD,CAROTID BRUIT [id number] 07/18/2017 11:18:00 017 23:59:59 CLS Outpatient LATIA ERIC MD [facility] RAD I25.10 [id number] 08/11/2015 13:03:00 015 11:30:00 DIS Inpatient ANTONIETA MONZON, HECTOR Hanks [facility] 4TH PERSISTENT RT LOWER ABD OMINAL PAIN [id number] 03/01/2015 08:21:00 015 10:40:00 DIS Outpatient JEANETH MONZON, LATIA Maya [facility] CAD,CP,HTN,HLP [id number] 02/28/2015 07:31:00 015 23:59:59 CLS Outpatient LATIA ERIC MD [facility] CARD CAD,CP,HTN,HLP [id number] 11/11/2014 11:29:00 015 23:59:59 CLS Outpatient NATALIE MONZON, LUIS León [facility] CARD RUQ PAIN,VOMITTING,JEANNIE RRHEA [id number] 04/17/2020 19:15:[address] Inpatient JA MONZON, RUPA Duke [facility] CSD CHEST PAIN [id number] 02/06/2013 06:00:00 Document Registration [id number] 07/04/2011 11:07:00 Document Registration
[2020-04-17 21:00] VITALS: BP 152/88
--- OUTSIDE RECORDS SUMMARY | 2020-04-17 21:26 | XMS REPORT ---
Author Author [employer] [facility] [facility] Address [address] [address] Care Team Providers Care Blind Installer Name Role Phone LUIS ESTRADA Unavailable LUIS ESTRADA Unavailable Unavailable LUIS ESTRADA Unavailable Unavailable LUIS ESTRADA Unavailable Unavailable LUIS ESTRADA PCP LUIS ESTRADA Unavailable Unavailable BENNETT DREW Unavailable Unavailable BENNETT DREW Unavailable Unavailable LUIS ESTRADA MD Unavailable Unavailable MERCEDES BURRELL MD Unavailable Unavailable LATIA ERIC MD Unavailable Unavailable HCETOR FUNG MD Unavailable Unavailable HECTOR FUNG MD Unavailable Unavailable BENNETT DREW Unavailable Unavailable BENNETT DREW Unavailable Unavailable BENNETT DREW Unavailable Unavailable Unavailable Unavailable Unavailable Unavailable Unavailable Unavailable Allergies Normalized Allergy Reported Date of Reaction(s) Care Provider Facility Allergy Type classification allergen Allergy Onset Drug Allergy glimepiride glimepiride 03-08-2019 - GI PROBLEMS - LUIS ESTRADA [facility] Via (20 sources.) Translations: ESE, [facility] [ glimepiride UNKNOWN, Hospital - ([id number]), glimepiride [place] glimepiride] ([id number]), (13482) Diarrhea Medications Medication Ingredient Drug Dose Dates [...] information ega3,6,9/Fa information d capsules by ga3,6 ,9/iXpertt phone) (2 tty Acid mouth once y Acid (Flax sources.) (Flax Seed daily, then Seed Oil Oil 1,300 take 1 1,300 Mg Mg Softgel) capsule by Softgel) 1 1 Each mouth Each Capsule Capsule 2 Each ORAL Daily no Flaxseed/Om no 2600 03-08-20 Complete take 1 Flaxse ed/Ome (no information ega3,6,9/Fa information mg 19 d capsule by ga3,6,9/iXpertt phone) (2 tty Acid mouth twice y Acid (Flax sources.) (Flax Seed daily Seed Oil Oil 1,300 1,300 Mg Mg Softgel) Softgel) 1 1 Each Each Capsule, Capsule, 2600 Mg 2600 Mg Oral Oral Twice A Day Discontinued no Fluticasone no 08-11-20 Complete no Fluticasone ( no information Propionate information 15 d information Pro pionate phone) (2 (Flonase (Flonase sources.) Nasal Nasal [place]) 16 16 Gm Naspr, Gm Naspr, 1 1 Sprays Sprays Nasal Daily Nasal as needed for [employer] Discontinued no Fluticasone no 1 Complete no Fluticasone (no information Propionate information spray( d information Pro pionate phone) (2 16 Gm s) 16 Gm sources.) [place].susp [place].susp 2 Sprays NASAL Daily In Afternoon as [...] , Not Available atherosclerosi c heart [facility] (64540) s and other disease of heart disease [place] (21 sources.) coronary artery without angina pectoris Translations: [ CORONARY ATHEROSCLEROSI S OF [place] CORONARY ARTERY, CORON ATHEROSCLER NOS TYPE VESSEL, NATIV, OLD MYOCARDIAL INFARCTION, CORONARY ATHEROSCLEROSI S OF [place] CORONARY ARTERY] Other and Benign Episodic Active MERCEDES BURRELL [facility] Via unspecified neoplasm of [facility] [place] benign sigmoid colon [facility] - neoplasm (6 [place] sources.) (31313) Other Body Mass Chronic Active LATIA ERIC [facility] Via nutritional; Index [facility] endocrine; and 38.0-38.9, Hospital - metabolic adult [place] disorders (5 (79381) sources.) Other Body Mass Chronic Active ROOPA SWARTZ , Not Avail able nutritional; Index [facility] (08860) endocrine; and 45.0-49.9, metabolic adult disorders (1 source.) Nonspecific Chest pain, Episodic Active LATIA ERIC [facility] Via chest pain (16 unspecified [facility] [place] sources.) Translations: Hospital - [ CHEST PAIN [place] NOS] (10441) Chronic Chronic Chronic Active MERCEDES BURRELL [facility] Via obstructive obstructive [facility] pulmonary pulmonary [facility] - disease and disease, [place] bronchiectasis unspecified (24869) (6 sources.) Diabetes Diabetes Chronic Active ROOPA MAXIME , Not Availa ble mellitus mellitus [facility] (00094) without without complication mention of (24 sources.) complication, type II or unspecified type, not stated as uncontrolled Translations: [ TYPE 2 DIABETES MELLITUS WITHOUT COMPLIC, DIABETES MELLITUS WITHOUT MENTION OF COMPLICATION, TYPE II OR UNSPECIFIED TYPE, NOT STATED UNCONTROLLED, DIABETES MELLITUS WITHOUT MENTION OF COMPLICATION, TYPE II OR UNSPECIFIED TYPE, NOT STATED UNCONTROLLED] Abdominal Diaphragmatic Episodic Active MERCEDES BURRELL [facility] Via hernia (6 hernia without [place] sources.) obstruction or Hospital - gangrene [place] (08898) Other Diarrhea Episodic Active LUIS MACHADOENS [facility] Via gastrointestMD [place] [facility] Hospital - (6 sources.) [place] (71907) Other Diarrhea Episodic Active LUIS Herio n Via gastrointestin [address] [facility] (1 source.) (07715) Diverticulosis Diverticulosis Chronic Active NGUYỄNKRYSTAL BURRELL [facility] Via and of large [facility] [place] diverticulitis intestine Hospital - (6 sources.) without [place] perforation or (41944) abscess without bleeding Other Dysphagia Episodic Active LUIS ESTRADA Asci on Via gastrointestin [address] [facility] (1 source.) (10647) Immunizations Encounter for Episodic Active HECTOR FUNG [facility] Via and screening immunization , [facility] [place] for infectious Hospital - disease (5 [place] sources.) (15574) Other Encounter for Episodic Active BENNETT DREW Hosp ital screening for screening for [facility] of suspected malignant [place] conditions neoplasm of County ([address]25) (not mental prostate disorders or Translations: infectious [ SCREENING disease) (14 FOR MALIGNANT sources.) NEOPLASMS OF PROSTATE, ENCOUNTER FOR SCREENING FOR MALIGNANT NE] Essential Essential Chronic Active ALI MAXIME , Not Avail able hypertension (primary) [facility] (14165) (21 sources.) hypertension Translations: [ MALIGNANT ESSENTIAL HYPERTENSION, HYPERTENSION NOS, MALIGNANT ESSENTIAL HYPERTENSION, UNSPECIFIED ESSENTIAL HYPERTENSION] Esophageal Gastro-esophag Chronic Active [facility] spital disorders (12 eal reflux [facility] of sources.) disease with [place] esophagitis [facility] (67077) Translations: [ ESOPHAGEAL REFLUX] 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 [facility] of al disorders [place] (3 sources.) [facility] (12069) 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 [facility] of al disorders with diarrhea [place] (3 sources.) [facility] (70340) Conduction Left anterior Chronic Active BASHAR JEANETH , [facility] Via disorders (5 fascicular [place] sources.) block [facility] (44004) Other retirement Episodic Active TAKAAKI KIDO , [facility] Via aftercare (6 (current) use [place] sources.) of aspirin [facility] (79885) 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 TAKAAKI KIDO , [facility] Via aftercare (5 (current) use [facility] [place] sources.) of oral Hospital - hypoglycemic [place] drugs (32708) Other Long-term Episodic Active BASHAR JEANETH , [facility] Via aftercare (5 (current) use [place] sources.) of other Hospital - medications [place] (32764) Noninfectious Noninfective Episodic Active HECTOR ODGERS [facility] Via gastroenteriti gastroenteriti [facility] [place] (5 sources.) s and colitis, Hospital - unspecified [place] (44835) Other Obesity, Chronic Active ALI MAXIME , Not Availa ble nutritional; unspecified [facility] (58892) endocrine; and metabolic disorders (6 sources.) Disorders of Other and Chronic Active ALI [facility] , Not Av ailable lipid unspecified [place] (74270) metabolism (21 hyperlipidemia sources.) Translations: [ HYPERLIPIDEMIA , UNSPECIFIED, OTHER AND UNSPECIFIED HYPERLIPIDEMIA , PURE HYPERCHOLESTER OLEMIA, UNSPECIFIED, MIXED HYPERLIPIDEMIA ] Other Other Chronic Active [facility] nutritional; disorders of [facility] of endocrine; and lipoid [place] metabolic metabolism [facility] (80804) disorders (3 sources.) Other Other long Episodic Active TAKAAKI KIDO , [facility] Vi a aftercare (6 term (current) [place] sources.) drug therapy [facility] (47520) Other Other Episodic Active BASHAR JEANETH , [facility] Via circulatory specified [facility] [place] disease (6 symptoms and Hospital - sources.) signs [place] involving the (23000) circulatory and respiratory systems Other Personal Episodic Active TAKAAKI KIDO , [facility] Via gastrointestin history of [facility] [place] al disorders other diseases Hospital - (6 sources.) of the [place] digestive (95237) system Screening and Personal Episodic Active BASHAR JEANETH , [facility] Via history of history of [facility] mental health tobacco use Hospital - and substance [place] abuse codes (5 (59148) sources.) Hemorrhoids (6 Second degree Episodic Active TAKAAKI KIDO , [facility] Via sources.) hemorrhoids [facility] (00052) Spondylosis; Spinal Episodic Active ALI MAXIME , Not Brit ilable intervertebral stenosis in [facility] [place] (46744) disc cervical disorders; region other back Translations: problems (2 [ SPINAL sources.) DISORDERS NEC] Syncope (5 Syncope and Episodic Active BASHAR JEANETH , [facility] Via sources.) collapse [facility] (51943) Diabetes Type 2 Chronic Active [facility] mellitus with diabetes [facility] of complications mellitus with [place] (7 sources.) hyperglycemia [facility] (47213) Translations: [ DIABETES MELLITUS WITH OTHER SPECIFIED MANIFESTATIONS , TYPE II OR UNSPECIFIED TYPE, NOT STATED UNCONTROLLED, DIABETES MELLITUS WITH OTHER SPECIFIED MANIFESTATIONS , TYPE II OR UNSPECIFIED TYPE, NOT STATED UNCONTROLLED] Gastritis and Unspecified Chronic Active MERCEDES KIDO , [facility] Via duodenitis (6 chronic [place] sources.) gastritis [facility] bleeding (13051) Nausea and Vomiting alone Episodic Active [facility] Via vomiting (6 , [place] sources.) [facility] (03822) Unclassified no information no information Active [facility] Via (1 source.) [address] [facility] (73101) Past or Other Problems Problem Normalized Date Last Normalized Normalized Provider Fa cility Classification Problem(s) Recorded Problem Problem Sta tus Duration Other superintendent terminal no information no information TAKAAKI KIDO , [facility] Via aftercare (1 (current) use [place] source.) of oral Hospital - hypoglycemic [place] drugs (03489) Disorders of Pure no information no information MERCEDES SPENCER O , [facility] Via lipid hypercholester [facility] [place] metabolism (1 olemia, Hospital - source.) unspecified [place] (69420) Procedures Procedure Normalized Procedure Procedure Result Performer Facility Date 03-10-2019 Colonoscopy no information MERCEDES SPENCERO [facility] (48802) 03-10-2019 Esophagogastroduodenos no information MERCEDES KIDO [facility] (53263) Immunizations Normalized Immunization Date Notes Care Provider Facili ty Immunization vaccine no information LUIS ESTRADA [address] [facility] Via Translations: [ [facility] vaccine] (01960) Results Test Name Value Interpretation Reference Range Date Time Fa cility (Normalized) (Normalized) (Medline Reference) other on 2019-03-09 Average glucose 214 (H) 03-09-2019 Hospital Estimated from 10:30-0400 [facility] of glycated [facility] hemoglobin mass (33877) conc (Bld) metabolic panel on 2019-03-09 HbA1c (Bld) 8.20 % (H) 0 - 5.7 % 03-09-2019 Hospital [Mass fraction] 10:30-0400 [facility] (60340) other on 2018-12-08 Albumin (U) 74.0 (H) 12-08-2018 Hospital [Mass/Vol] 10:25-0500 [facility] of [facility] (60464) Average glucose 284 (H) 12-08-2018 Hospital Estimated from 10:250500 [facility] of glycated [facility] hemoglobin mass (97083) conc (Bld) Cholesterol in 24 mg/dL (no code) 12-08-2018 Hospital VLDL [Mass/Vol] 10:250500 [facility] (40439) Cholesterol.tota 4.4 {ratio} (no code) 12-08-2018 Hospital l/Cholesterol in 10:25-0500 [facility] of HDL [Mass ratio] [facility] (04284) GFR/1.73 sq 54 (L) 90 - 120 12-08-2018 Hospital M.predicted MDRD mL/min/{1.73_m2} mL/min/{1.73_m2} 10:25-0500 [facility] of (S/P/Bld) [Vol [facility] rate/Area] (94461) HCO3 (P) 25 (no code) 12-08-2018 Hospital [Moles/Vol] 10: [facility] (27655) Osmolality Calc 293 (no code) 12-08-2018 Hospital [Osmolality] 10: [facility] of [facility] (61692) Prostate 0.9 (no code) 12-08-2018 Hospital specific Ag DL 10: [facility] of <= 0.01 ng/mL [facility] [Mass/Vol] () metabolic panel on 2018-12-08 Anion gap 15 mmol/L (H) 3 - 11 mmol/L 12-08-2018 Hospital [Moles/Vol] 10: [facility] (52847) Calcium 9.6 mg/dL (no code) 8.5 - 10.2 mg/dL 12-08-2018 Hospi robert [Mass/Vol] 10: [facility] (55966) Chloride 103 mmol/L (no code) 95 - 106 mmol/L 12-08-2018 Hospi robert [Moles/Vol] 10: [facility] (06973) Creatinine 1.33 mg/dL (no code) 12-08-2018 Hospital [Mass/Vol] 10: [facility] (71026) Glucose 190 mg/dL (H) 60 - 125 mg/dL 12-08-2018 Hospita l [Mass/Vol] 10: [facility] (87398) HbA1c (Bld) 10.10 % (H) 0 - 5.7 % 12-08-2018 Hospital [Mass fraction] 10: [facility] (80692) Potassium 4.5 mmol/L (no code) 3.7 - 5.2 mmol/L 12-08-2018 Hosp ital [Moles/Vol] 10: [facility] (77370) Sodium 138 mmol/L (no code) 135 - 145 mmol/L 12-08-2018 Hosp ital [Moles/Vol] 10: [facility] (53294) Urea nitrogen 21 mg/dL (no code) 7 - 20 mg/dL 12-08-2018 Hospi robert [Mass/Vol] 10: [facility] (42321) cardiac on 2018-12-08 Cholesterol 153 mg/dL (no code) 180 - 200 mg/dL 12-08-2018 Hosp ital [Mass/Vol] 10: [facility] (79834) Cholesterol in 35 mg/dL (no code) 12-08-2018 Hospital HDL [Mass/Vol] 10: [facility] (60297) Cholesterol in 94 mg/dL (no code) 0 - 100 mg/dL 12-08-2018 Hos pital LDL [Mass/Vol] 10: [facility] (00293) Triglyceride 121 mg/dL (no code) 0 - 150 mg/dL 12-08-2018 Hospi robert [Mass/Vol] 10: [facility] (19486) urinalysis on 2018-08-03 Bilirubin Ql (U) 1.1 (no code) 08-03-2018 Hospital 11:450400 [facility] (96510) other on 2018-08-03 Globulin 3.0 g/dL (no code) 2 - 3.5 g/dL 08-03-2018 Hospital Calculated mass 11:45-0400 [facility] of conc (S) [facility] (52780) metabolic panel on 2018-08-03 Albumin mass 4.3 g/dL (no code) 3.4 - 5.4 g/dL 08-03-2018 Hosp ital conc 11:450400 [facility] (71806) ALP enzyme 44 U/L (no code) 44 - 147 U/L 08-03-2018 Hospital act/vol 11:45040 [facility] (31745) ALT enzyme 28 U/L (no code) 4 - 40 U/L 08-03-2018 Hospital act/vol 11:450400 [facility] (08890) Anion gap 3 15 mmol/L (H) 3 - 11 mmol/L 08-03-2018 Hospit al molar conc 11: [facility] (51474) AST enzyme 29 U/L (no code) 10 - 34 U/L 08-03-2018 Hospital act/vol 11: [facility] (66657) Calcium mass 9.7 mg/dL (no code) 8.5 - 10.2 mg/dL 08-03-2018 Ho spital conc 11: [facility] (43318) Chloride molar 102 mmol/L (no code) 95 - 106 mmol/L 08-03-2018 Hospital conc 11: [facility] (07615) CO2 molar conc 27 mmol/L (no code) 23 - 29 mmol/L 08-03-2018 Ho spital 11: [facility] () Creatinine mass 1.22 mg/dL (no code) 08-03-2018 Hospital conc 11: [facility] () GFR/1.73 sq M 60 (no code) 90 - 120 08-03-2018 Hospital predicted among mL/min/{1.73_m2} mL/min/{1.73_m2} 11: [facility] of non-blacks MDRD [facility] vol rate/area () (S/P/Bld) Glucose mass 155 mg/dL (H) 60 - 125 mg/dL 08-03-2018 Hosp ital conc 11: [facility] (44711) Osmolality 292 mosm/kg (no code) 275 - 295 08-03-2018 Hospital mosm/kg 11: [facility] (32165) Potassium molar 5.0 mmol/L (no code) 3.7 - 5.2 mmol/L 08-03-2018 Hospital conc 11: [facility] (70880) Protein mass 7.3 g/dL (no code) 6.4 - 8.3 g/dL 08-03-2018 Hosp ital conc 11: [facility] (90246) Sodium molar 139 mmol/L (no code) 135 - 145 mmol/L 08-03-2018 H ospital conc 11:45-0400 [facility] (41964) Urea nitrogen 19 mg/dL (no code) 7 - 20 mg/dL 08-03-2018 Hospi robert mass conc 11:45-0400 [facility] (31641) other on 2018-04-30 %A1C 7.70 (H) 04-30-2018 [...] 104.0 (H) 11-15-2016 Not Available [Mass/Vol] 14:20-0500 (46976) Average glucose 216 (H) 11-15-2016 Not Availa ble Estimated from 14:0500 (30218) glycated hemoglobin mass conc (Bld) Cholesterol in 44 mg/dL (H) 11-15-2016 Not Availab le VLDL [Mass/Vol] 14:0500 (86895) Cholesterol.tota 5.3 {ratio} (no code) 11-15-2016 Not Avail able l/Cholesterol in 14:0500 (32542) HDL [Mass ratio] GFR/1.73 sq 51 (L) 90 - 120 11-15-2016 Not Availa ble M.predicted MDRD mL/min/{1.73_m2} mL/min/{1.73_m2} 14:0500 (69588) (S/P/Bld) [Vol rate/Area] HCO3 (P) 25 (no code) 11-15-2016 Not Available [Moles/Vol] 14:20-0500 (96787) Osmolality Calc 293 (no code) 11-15-2016 Not Availa ble [Osmolality] 14:20-0500 (54590) metabolic panel on 2016-11-15 Anion gap 14 mmol/L (no code) 3 - 11 mmol/L 11-15-2016 Not Avai lable [Moles/Vol] 14:20-0500 (44032) Calcium 9.2 mg/dL (no code) 8.5 - 10.2 mg/dL 11-15-2016 Not A vailable [Mass/Vol] 14:20-0500 (42742) Chloride 103 mmol/L (no code) 95 - 106 mmol/L 11-15-2016 Not A vailable [Moles/Vol] 14:20-0500 (33840) Creatinine 1.41 mg/dL (no code) 11-15-2016 Not Available [Mass/Vol] 14:20-0500 (02688) Glucose 204 mg/dL (H) 60 - 125 mg/dL 11-15-2016 Not Brit ilable [Mass/Vol] 14:20-0500 (83282) HbA1c (Bld) 8.30 % (H) 0 - 5.7 % 11-15-2016 Not Availa ble [Mass fraction] 14:20-0500 (50350) Potassium 5.3 mmol/L (no code) 3.7 - 5.2 mmol/L 11-15-2016 Not Available [Moles/Vol] 14:20-0500 (73990) Sodium 137 mmol/L (no code) 135 - 145 mmol/L 11-15-2016 Not Available [Moles/Vol] 14:20-0500 (42721) Urea nitrogen 27 mg/dL (H) 7 - 20 mg/dL 11-15-2016 Not A vailable [Mass/Vol] 14:20-0500 (67895) cardiac on 2016-11-15 Cholesterol 222 mg/dL (no code) 180 - 200 mg/dL 11-15-2016 Not Available [Mass/Vol] 14:20-0500 (42533) Cholesterol in 42 mg/dL (no code) 11-15-2016 Not Availab le HDL [Mass/Vol] 14:20-0500 (87491) Cholesterol in 136 mg/dL (H) 0 - 100 mg/dL 11-15-2016 Not Available LDL [Mass/Vol] 14:20-0500 (91920) Triglyceride 219 mg/dL (H) 0 - 150 mg/dL 11-15-2016 Not A vailable [Mass/Vol] 14:20-0500 (88386) Vital Signs The data below is from unstructured sources Vital Response Date/Time Temperature (Fahrenheit) 97.3 degree s F (97.6 - 99.5) 08/12/2015 10:00am Temperature (Calculated Celsius) 36. 98613 degrees C (36.4 - 37.5) 08/12/2015 10:00am [...] inches 08/11/2015 2:16pm Height (Calculated Centimeters) 175. 810885 cm 08/11/2015 2:16pm Weight (Pounds) 266 pounds 08/11/2015 2:16pm Weight (Calculated Grams) 550296.572 gm 08/11/2015 2:16pm Weight (Calculated Kilograms) 120.65 5572 kilograms 08/11/2015 2:16pm Calculated BMI 39.28 2:16pm Vital Response Date/Time Temperature (Fahrenheit) 98.1 degree s F (97.6 - 99.5) Temperature (Calculated Celsius) 36. 13991 degrees C (36.4 - 37.5) Temperature Source Temporal Pulse Rate (adult) 58 bpm (60 - 90) Respiratory Rate 20 bpm (12 - 24) O2 Sat by Pulse Oximetry 98 % (88 - 100) Blood Pressure 137/83 mm Hg Pain Pain Intensity 0 Height (Feet) 5 feet Height (Inches) 9.00 inches Height (Calculated Centimeters) 175. 168851 cm Weight (Pounds) 260 pounds Weight (Calculated Grams) 614153.017 gm Weight (Calculated Kilograms) 117.93 4017 kilograms Calculated BMI 39.57 Vital Response Date/Time Height (Feet) 5 feet 2:30pm Height (Inches) 8.00 inches 03/08/2019 2:30pm Height (Calculated Centimeters) 172. 659009 cm 03/08/2019 2:30pm Weight (Pounds) 325 pounds 03/08/2019 2:30pm Weight (Ounces) 0.0 oz 0 03/08/2019 2:30pm Weight (Calculated Grams) 569842.52 gm 03/08/2019 2:30pm Weight (Calculated Kilograms) 147.41 7522 kilograms 03/08/2019 2:30pm Calculated BMI 49.4 02/18 2:30pm Vital Response Date/Time Temperature (Fahrenheit) 97.9 degree s F (97.6 - 99.5) 03/10/2019 5:05pm Temperature (Calculated Celsius) 36. 75965 degrees C (36.4 - 37.5) 03/10/2019 5:05pm [...] inches 03/10/2019 1:08pm Height (Calculated Centimeters) 172. 924156 cm 03/10/2019 1:08pm Weight (Pounds) 325 pounds 03/10/2019 1:08pm Weight (Ounces) 0.0 oz 0 03/10/2019 1:08pm Weight (Calculated Grams) 340763.52 gm 03/10/2019 1:08pm Weight (Calculated Kilograms) 147.41 7522 kilograms 03/10/2019 1:08pm Calculated BMI 49.4 02/18 1:08pm Weight Measurement Method Standing Scale 03/10/2019 1:08pm Vital Response Date/Time Temperature (Fahrenheit) 97.9 degree s F (97.6 - 99.5) 03/10/2019 5:05pm Temperature (Calculated Celsius) 36. 57338 degrees C (36.4 - 37.5) 03/10/2019 5:05pm [...] inches 03/10/2019 1:08pm Height (Calculated Centimeters) 172. 665692 cm 03/10/2019 1:08pm Weight (Pounds) 325 pounds 03/10/2019 1:08pm Weight (Ounces) 0.0 oz 0 03/10/2019 1:08pm Weight (Calculated Grams) 200662.52 gm 03/10/2019 1:08pm Weight (Calculated Kilograms) 147.41 [...] Type 03-10-2019 Admission to day no information [employer] Work no organization name - surgery Phone: [...] (no [facility] - procedure phone) [facility] (no 03-03-2020 phone) 12-29-2019 Patient encounter no information LATIA ERIC MD (no [facility] procedure phone) [facility] (no phone) 10-29-2019 Patient encounter no information no name no or ganization name - procedure 10-29-2019 07-23-2019 Patient encounter no information no name no or ganization name - procedure 07-24-2019 03-10-2019 Patient encounter no information no name no or ganization name - procedure 03-10-2019 03-10-2019 Patient encounter no information MERCEDES BURRELL MD (n o [facility] - procedure phone) [facility] 03-10-2019 (no phone) 03-09-2019 Patient encounter no information no name no or ganization name - procedure 03-10-2019 03-08-2019 Patient encounter no information MERCEDES [employer] Work no organization name - procedure Phone: 03-08-2019 [employer] 03-08-2019 Patient encounter no information MERCEDES BURRELL MD (n o [facility] - procedure phone) [facility] 03-08-2019 (no phone) 12-08-2018 Patient encounter [...] MD (no [facility] procedure phone) [facility] (no phone) 11-15-2016 Patient encounter no information no name no or ganization name - procedure 11-16-2016 11-11-2014 Patient encounter no information no name no or ganization name procedure 11-11-2014 Patient encounter no information LUIS [facility] procedure (no phone) [facility] (no phone) 12-29-2019 no information Encounter for other no name no organization name preprocedural examination Medical Equipment No Information Payers Normalized Payer Value Blue Cross Blue Shield no information [facility] Blue Shield [id number] ([id number]) Medicare no information Advance Directives Directive Response Recor ded Date/Time Advance Directives No 2:06pm Health Care Power of Jewel Bearing Polisher No 08/11/15 2:06pm Organ Donor Yes 08/11/15 2:06pm Resuscitation Status Full Code 08/11/15 2:06pm Directive Response Recor ded Date/Time Advance Directives No 11:30am Health Care Power of Jewel Bearing Polisher No 03/01/15 11:30am Organ Donor Yes 03/01/15 11:30am Resuscitation Status Full Code 03/01/15 11:30am Directive Response Recor ded Date/Time Advance Directives No 2:27pm Health Care Power of Jewel Bearing Polisher No 03/08/19 2:27pm Organ Donor Yes 08/11/15 2:06pm Resuscitation Status Full Code 03/08/19 2:27pm Directive Response Recor ded Date/Time Advance Directives No 1:15pm Health Care Power of Jewel Bearing Polisher No 03/10/19 1:15pm Organ Donor Yes 03/10/19 [...] advance to a bland diet. ([employer] chicken breast and mashed potatoes) at that [...] advance to a bland diet. ([employer] chicken breast and mashed potatoes) at that [...] This clinical document has been generated using [employer] software that has been certified by the Office of the National Coordinator for Health Information Technology (ONC 15.99.04.3023.Diam.[id number]) and the National Committee for Community Engagement Manager (NCQA, as an eMeasure certified technology). FOR [...] BASED ON T HE PRIMARY CLINICAL RECORDS. [employer]. provides no warranty or guara ntee of the accuracy or completeness of information in this document.The followi ng information is based on time limited clinical information
--- OUTSIDE RECORDS SUMMARY | 2020-04-17 21:27 | XMS REPORT | Continuity of Care Document ---
Author Organization Unknown Address Unknown Phone Unavailable Allergies Active Description Code Type Severity Reaction Onset Reported/Identified Relationship to Patient Clinical Status Yes AMARYL UNKNOWN GI PROBLEMS - NAUSEA Yes AMARYL UNKNOWN UNKNOWN Yes HALDOL UNKNOWN OTHER Yes HALDOL UNKNOWN UNKNOWN Yes METFORMIN UNKNOWN GI PROBLEMS - DIARRH Yes METFORMIN UNKNOWN UNKNOWN Yes glimepiride [id number] Drug Aller gy Unknown Diarrhea 03/10/2019 Yes haloperidol [id number] Drug Aller gy Unknown N/A 03/10/2019 Yes Haloperidol Lactate [id number] Drug Allergy Unknown N/A 03/10/2019 Yes metformin [id number] Drug Allergy Unknown N/A 03/10/2019 Medications There [...] 02/07/2013 Ot 414.01 COR ONARY ATHEROSCLEROSIS OF [place] CORON 02/07/2013 Ot 721.8 SPIN AL DISORDERS [...] MD Ot 414. 01 CORONARY ATHEROSCLEROSIS OF [place] CORON 03/02/2015 LATIA ERIC MD Ot 780. [...] Ot I25. 10 ATHSCL HEART DISEASE OF [place] CORONARY 07/30/2017 LATIA ERIC MD Ot R07. [...] LUIS ESTRADA W 414.01 CORONARY ATHEROSCLEROSIS OF [place] CORONARY ARTERY 04/30/2018 LUIS ESTRADA A E11.65 TYPE 2 DIABETES MELLITUS WITH HYPERGLYCEMIA 04/30/2018 LUIS ESTRADA W I10 ESSENTIAL (PRIMARY) HYPERTENSION 04/30/2018 LUIS ESTRADA W I25.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 PECTORIS 04/30/2018 LIUS ESTRADA A 250.80 DIABETES MELLITUS WITH OTHER SPECIFIED MANIFESTATIONS, TYPE II OR UNSPECIFIED TYPE, NOT STATED UNCONTROLLED 04/30/2018 LUIS ESTRADA W 401.0 MALIGNANT ESSENTIAL HYPERTENSION 04/30/2018 LUIS ESTRADA W 414.01 CORONARY ATHEROSCLEROSIS OF [place] CORONARY ARTERY 04/30/2018 LUIS ESTRADA A E11.65 TYPE 2 DIABETES MELLITUS WITH HYPERGLYCEMIA 04/30/2018 LUIS ESTRADA W I10 ESSENTIAL (PRIMARY) HYPERTENSION 04/30/2018 LUIS ESTRADA W I25.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 PECTORIS 04/30/2018 A 250.80 JEANNIE BETES MELLITUS WITH OTHER SPECIFIED MANIFESTATIONS, TYPE II OR UNSPECIFIED TYPE, NOT STATED UNCONTROLLED 04/30/2018 W 401.0 ALMITA GNANT ESSENTIAL HYPERTENSION 04/30/2018 W 414.01 COR ONARY ATHEROSCLEROSIS OF [place] CORONARY ARTERY 04/30/2018 A E11.65 TYP E 2 DIABETES MELLITUS WITH HYPERGLYCEMIA 04/30/2018 W I10 ESSENT IAL (PRIMARY) HYPERTENSION 04/30/2018 W I25.10 ATH EROSCLEROTIC HEART DISEASE OF [place] CORONARY ARTERY WITHOUT ANGINA PECTORIS 04/30/2018 FRANKLIN ESTRADAHEL A 250.80 DIABETES MELLITUS WITH OTHER SPECIFIED MANIFESTATIONS, TYPE II OR UNSPECIFIED TYPE, NOT STATED UNCONTROLLED 04/30/2018 ESTRADALUIS ANN W 401.0 MALIGNANT ESSENTIAL HYPERTENSION 04/30/2018 ESTRADA LUIS W 414.01 CORONARY ATHEROSCLEROSIS OF [place] CORONARY ARTERY 04/30/2018 ESTRADALUIS ANN A E11.65 TYPE 2 DIABETES MELLITUS WITH HYPERGLYCEMIA 04/30/2018 LUIS ESTRADA W I10 ESSENTIAL (PRIMARY) HYPERTENSION 04/30/2018 ESTRADA, LUIS W I25.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 10 ATHSCL HEART DISEASE OF [place] CORONARY 03/05/2019 LATIA ERIC MD Ot R07. 9 CHEST PAIN, UNSPECIFIED 03/05/2019 LATIA ERIC MD Ot R09. 89 OTH SYMPTOMS AND SIGNS INVOLVING THE CIR 03/08/2019 MERCEDES BURRELL MD Ot Z01.81 8 ENCOUNTER FOR OTHER PREPROCEDURAL EXAMIN 03/09/2019 MERCEDES BURRELL MD, Ot Z01.81 8 ENCOUNTER FOR OTHER PREPROCEDURAL EXAMIN 03/10/2019 MERCEDES BURRELL MD, Ot D12.5 BENIGN NEOPLASM OF SIGMOID COLON 03/10/2019 MERCEDES BURRELL MD, Ot E78.00 PURE HYPERCHOLESTEROLEMIA, UNSPECIFIED 03/10/2019 MERCEDES BURRELL MD, Ot I10 ESSENTIAL (PRIMARY) HYPERTENSION 03/10/2019 MERCEDES BURRELL MD, Ot I25.10 ATHSCL HEART DISEASE OF [place] CORONARY 03/10/2019 MERCEDES BURRELL MD, Ot I25.2 [...] NE 03/10/2019 MERCEDES BURRELL MD, Ot 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 03/10/2019 MERCEDES BURRELL MD, Ot Z79.84 LONG-TERM (CURRENT) USE OF ORAL HYPOGLYC 03/10/2019 MERCEDES BURRELL MD, Ot Z79.89 9 OTHER LONG-TERM (CURRENT) DRUG THERAPY 03/10/2019 MERCEDES BURRELL MD, Ot Z87.19 PERSONAL HISTORY OF OTHER DISEASES OF TH 03/16/2019 MERCEDES BURRELL MD, Ot D12.5 BENIGN NEOPLASM OF SIGMOID COLON 03/16/2019 MERCEDES BURRELL MD, Ot E78.00 PURE HYPERCHOLESTEROLEMIA, UNSPECIFIED 03/16/2019 MERCEDES BURRELL MD, Ot I10 ESSENTIAL (PRIMARY) HYPERTENSION 03/16/2019 MERCEDES BURRELL MD, Ot I25.10 ATHSCL HEART DISEASE OF [place] CORONARY 03/16/2019 MERCEDES BURRELL MD, Ot I25.2 [...] NE 03/16/2019 MERCEDES BURRELL MD, Ot 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 10 ATHSCL HEART DISEASE OF [place] CORONARY 12/29/2019 LATIA ERIC MD Ot R07. [...] Ot I25. 10 ATHSCL HEART DISEASE OF [place] CORONARY 12/31/2019 LATIA ERIC MD Ot I44. [...] Ot I25. 10 ATHSCL HEART DISEASE OF [place] CORONARY 04/17/2020 LATIA ERIC MD Ot R07. [...] Ot I25. 10 ATHSCL HEART DISEASE OF [place] CORONARY 04/17/2020 LATIA ERIC MD Ot I44. [...] Ot I25. 10 ATHSCL HEART DISEASE OF [place] CORONARY 04/17/2020 LATIA ERIC MD Ot R07. [...] Ot I25. 10 ATHSCL HEART DISEASE OF [place] CORONARY 04/17/2020 LATIA ERIC MD Ot I44. [...] Ot I25. 10 ATHSCL HEART DISEASE OF [place] CORONARY 04/17/2020 LATIA ERIC MD Ot R07. 9 CHEST PAIN, UNSPECIFIED 04/17/2020 LATIA ERIC MD Ot R09. 89 OTH SYMPTOMS AND SIGNS INVOLVING THE CIR 04/17/2020 LATIA ERIC MD Ot E11. 9 TYPE 2 DIABETES MELLITUS WITHOUT COMPLIC 04/17/2020 LATIA ERIC MD Ot E78. 2 MIXED HYPERLIPIDEMIA 04/17/2020 LATIA ERCI MD Ot I10 ESSENTIAL (PRIMARY) HYPERTENSION 04/17/2020 LATIA ERIC MD Ot I25. 10 ATHSCL HEART DISEASE OF [place] CORONARY 04/17/2020 LATIA ERIC MD Ot I44. [...] Status Pt. Type Provider Facility Loc./Unit Complaint [id number] 03/03/2020 16:20:00 03/03/2020 23:59 :00 DIS Outpatient [place] Jacobson [id number] 10/29/2019 16:18:00 10/29/2019 23:59 :00 DIS Outpatient [place] Jacobson [id number] 07/23/2019 15:00:00 07/23/2019 23:59: 00 DIS Outpatient [place] Jacobson [id number] 03/09/2019 12:14:00 03/09/2019 23:59: 00 DIS Outpatient LUIS ESTRADA [id number] 12/08/2018 10:43:00 12/08/2018 23:59: 00 DIS Outpatient [place] Jacobson [id number] 08/03/2018 11:32:00 08/03/2018 23:59: 00 DIS Outpatient LATIA ERIC [id number] 04/30/2018 18:51:00 04/30/2018 23:59: 00 DIS Outpatient LUIS ESTRADA [id number] 10/24/2017 08:45:00 10/24/2017 23:59: 00 DIS Outpatient [place] Jacobson [id number] 11/15/2016 14:21:00 11/15/2016 23:59: 00 DIS Outpatient LUIS ESTRADA [id number] 12/08/2018 09:06:00 Document Registration [id number] 04/30/2018 14:00:00 Document Registration [id number] 10/24/2017 08:30:00 Document Registration [id number] 12/29/2019 13:01:00 020 23:59:59 CLS Outpatient LATIA ERIC MD [facility] LAB FS CMP LIPID [id number] 03/10/2019 12:19:00 019 17:05:00 DIS Outpatient MERCEDES BURRELL MD [facility] ENDO DIARRHEA/CHANGE IN CHAMP L HABITS/DYSPHAGIA [id number] 03/08/2019 07:08:00 019 14:51:00 DIS Outpatient MERCEDES BURRELL MD [facility] PREOP COLONOSCOPY/EGD [id number] 01/27/2018 07:42:00 018 23:59:59 CLS Preadmit LATIA ERIC MD [facility] CARD CAD,CAROTID BRUIT [id number] 07/18/2017 11:18:00 017 23:59:59 CLS Outpatient LATIA ERIC MD [facility] RAD I25.10 [id number] 08/11/2015 13:03:00 015 11:30:00 DIS Inpatient ANTONIETA MONZON, HECTOR Hanks [facility] 4TH PERSISTENT RT LOWER ABD OMINAL PAIN [id number] 03/01/2015 08:21:00 015 10:40:00 DIS Outpatient JEANETH MONZON, LATIA Maya [facility] CAD,CP,HTN,HLP [id number] 02/28/2015 07:31:00 015 23:59:59 CLS Outpatient LATIA ERIC MD [facility] CARD CAD,CP,HTN,HLP [id number] 11/11/2014 11:29:00 015 23:59:59 CLS Outpatient NATALIE MONZON, LUIS Lóen [facility] CARD RUQ PAIN,VOMITTING,JEANNIE RRHEA [id number] 04/17/2020 19:15:[address] Inpatient JA MONZON, RUPA [facility] CSD CHEST PAIN [id number] 02/06/2013 06:00:00 Document Registration [id number] 07/04/2011 11:07:00 Document Registration
[2020-04-17] MEDS ORDERED: NS IV 1000 ML 1,000 ML IV SCH (21:45)
[2020-04-17] MEDS ORDERED: ONDANSETRON 4 MG/2 ML (SDV) Z0FRAN IV PRN (21:45)
[2020-04-17] MEDS ORDERED: NITROGLYCERIN 0.4 MG SL TABS BTL 25'S SL PRN (21:45)
[2020-04-17] MEDS ORDERED: morphine INJ 4 MG/ML 1 ML (VIAL/SYRINGE) IV PRN (21:45)
[2020-04-17 23:34] VITALS: BP 135/74
[2020-04-18 03:52] VITALS: BP 132/81
[2020-04-18 04:23] LABS: BASOPHILS % (AUTO) 0 % (0-10); EOSINOPHILS # (AUTO) 0.2 10^3/uL (0.0-0.3); EOSINOPHILS % (AUTO) 3 % (0-10); HEMATOCRIT 42 % (40-54); HEMOGLOBIN 13.4 G/DL (13.3-17.7); LYMPHOCYTES % (AUTO) 36 % (12-44); MEAN CORPUSCULAR HEMOGLOBIN 26 PG (25-34); MEAN CORPUSCULAR HGB CONC 32 G/DL (32-36); MEAN CORPUSCULAR VOLUME 80 FL (80-99); MEAN PLATELET VOLUME 10.9 FL (7.4-10.4); MONOCYTES # (AUTO) 0.5 X 10^3 (0.0-1.0); MONOCYTES % (AUTO) 8 % (0-12); NEUTROPHILS % (AUTO) 53 % (42-75); PLATELET COUNT 130 10^3/uL (130-400); RED CELL DISTRIBUTION WIDTH 15.5 % (10.0-14.5); WHITE BLOOD COUNT 5.7 10^3/uL (4.3-11.0)
[2020-04-18 04:35] LABS: ALBUMIN 3.8 GM/DL (3.2-4.5)
[2020-04-18 04:36] LABS: CHLORIDE 102 MMOL/L (98-107); POTASSIUM 4.1 MMOL/L (3.6-5.0); SODIUM 136 MMOL/L (135-145)
[2020-04-18 04:37] LABS: CALCIUM 8.9 MG/DL (8.5-10.1)
[2020-04-18 04:38] LABS: GLUCOSE 140 MG/DL (70-105); TOTAL PROTEIN 6.9 GM/DL (6.4-8.2)
[2020-04-18 04:39] LABS: CARBON DIOXIDE 23 MMOL/L (21-32)
[2020-04-18 04:41] LABS: ALKALINE PHOSPHATASE 50 U/L (40-136)
[2020-04-18 04:42] LABS: CREATININE SERUM 1.29 MG/DL (0.60-1.30); GFR ESTIMATED 56
[2020-04-18 04:43] LABS: BUN/CREATININE RATIO 14
[2020-04-18 04:44] LABS: ALANINE AMINOTRANSFERASE 31 U/L (0-55)
[2020-04-18 07:20] LABS: TRIGLYCERIDES 128 MG/DL (<150); VLDL CHOLESTEROL 26 MG/DL (5-40)
[2020-04-18 07:25] LABS: CHOLESTEROL 119 MG/DL (< 200)
[2020-04-18 07:26] LABS: HDL CHOLESTEROL 31 MG/DL (40-60)
[2020-04-18 09:00] VITALS: BP 144/82
[2020-04-18] MEDS ORDERED: ASPIRIN E.C. 81 MG (ECOTRIN) TAB PO SCH (09:00)
--- NOTE | 2020-04-18 12:44 | Short Stay Summary-Hospitalist ---
History of Present Illness HPI/Chief Complaint Pt is a 65yoCM with a PMH of IDDMII, HTN, COPD who presented to the ER due to chest pain. He states he was sitting when it started and he took a nitro which made it go away but it came back again and he decided to seek care in the ER. He denies any worsening SOB with this but states he is always short of breath from his years of smoking. This morning he states he is feeling well and has no complaints. He has had no further chest pain since arrival. He is requesting discharge home. Date Seen 04/18/20 Time Seen by a Provider: 12:53 Attending Physician Aravind Velazquez MD PCP Janene Velazco MD Referring Physician Date of Admission Apr 17, 2020 at 19:15 Home Medications & Allergies Home Medications Reviewed patient Home Medication Reconciliation performed by pharmacy medication reconciliations multimedia technician and/or nursing. Patients Allergies have been reviewed. Allergies Allergies Coded Allergies Haloperidol Lactate (Verified Allergy, Unknown, 08/11/15) glimepiride (Verified Allergy, Unknown, Diarrhea, 03/08/19) haloperidol (Verified Allergy, Unknown, 08/11/15) metformin (Verified Allergy, Unknown, 08/11/15) Past Sipjseh-Qvqtqu-Gaerhh Hx Past Med/Social Hx: Reviewed Nursing Past Med/Soc Hx Patient Social History Alcohol Use: Occasionally Uses Recreational Drug Use: No Smoking Status: Former Smoker Former Smoker, Quit: March 08, 1990 Type Used: Cigarettes Recent Foreign Travel: No Contact w/other who traveled: No Recent Hopitalizations: No Recent Infectious Disease Expo: No Immunizations Up To Date Tetanus Booster (TDap): More than 5yrs Date of Pneumonia Vaccine: Sep 19, 2011 Date of Influenza Vaccine: Aug 12, 2015 Seasonal Allergies Seasonal Allergies: No Past Medical History Surgeries: Appendectomy, Gallbladder Currently Using CPAP: No Currently Using BIPAP: No Cardiac: Coronary Artery Disease, Heart Attack, High Cholesterol, Hypertension Reproductive: No Sexually Transmitted Disease: No HIV/AIDS: No Genitourinary: Kidney Stones Gastrointestinal: Gastrointestinal Bleed, Hemorrhoids, Chronic Diarrhea, Hiatal Hernia Musculoskeletal: Arthritis, Rheumatoid Arthritis Endocrine: Diabetes, Non-Insulin dep HEENT: Cataract, Tinnitis Loss of Vision: Denies Hearing Impairment: Denies History of Blood Disorders: No Adverse Reaction to Blood Peck: No Family History Reviewed Nursing Family Hx Cardiovascular disease 19 FATHER 19 MOTHER Hypertension 19 FATHER No Pertinent Family Hx Review of Systems Constitutional: No chills, No fever EENTM: no symptoms reported Respiratory: No cough, No dyspnea on exertion; short of breath Cardiovascular: see HPI, chest pain; No edema; Hx of Intervention Gastrointestinal: no symptoms reported Genitourinary: no symptoms reported Musculoskeletal: no symptoms reported Skin: no symptoms reported Psychiatric/Neurological: No Symptoms Reported Physical Exam Physical Exam Vital Signs Vital Signs - First Documented 04/17/20 18:00 Temp 36.7 Pulse 88 Resp 20 B/P (MAP) 193/97 (129) Pulse Ox 99 O2 Delivery Room Air Capillary Refill : Less Than 3 Seconds Height, Weight, BMI Height: 5'8.00" Weight: 325lbs. 0.0oz. 147.657204in; 40.60 BMI Method: General Appearance: No Apparent Distress, WD/WN, Obese HEENT: PERRL/EOMI, Moist Mucous Membranes; No Scleral Icterus (L), No Scleral Icterus (R) Neck: Normal Inspection, Supple Respiratory: Lungs Clear, No Accessory Muscle Use, No Respiratory Distress Cardiovascular: Regular Rate, Rhythm, No Murmur, Normal Peripheral Pulses Gastrointestinal: Normal Bowel Sounds, No Organomegaly, Non Tender Extremity: Normal Capillary Refill, No Calf Tenderness, No Pedal Edema Neurologic/Psychiatric: Alert, Oriented x3, Normal Mood/Affect; No Aphasia, No Facial Droop Skin: Normal Color, Warm/Dry Results Results/Procedures Labs Laboratory Tests 04/17/20 18:10 04/18/20 04:10 Patient resulted labs reviewed. Imaging: Reviewed Imaging Report Imaging [facility], [place] NAME: BRIAN ATKINSON [facility] REC#: [id number] PT STATUS: REG ER : 1955 PHYSICIAN: DIONI AUGUSTINE ADMIT DATE: 04/17/20/ER Signed Date of Exam:04/17/20 CHEST 1 VIEW, AP/PA ONLY EXAMINATION: Chest 1 view HISTORY: Chest pain COMPARISON: 08/11/2015 FINDINGS: The lungs are clear without edema or pneumonia. No pleural effusion or pneumothorax. Heart size is normal for portable technique. IMPRESSION: 1. Clear lungs. Dictated by: Dictated on workstation # [id number] Dict: 04/17/20 1842 Trans: 04/17/201925 [facility] [id number] Interpreted by: YON MOREL MD Electronically signed by: YON MOREL MD 04/17/201925 Short Stay Diagnosis Discharge Diagnosis-Short Stay Admission Diagnosis Chest pain Final Discharge Diagnosis Chest pain Conclusion Plan Chest pain CAD Cardiology consulted, appreciate recs troponin negative x3 EKG with no acute findings Last cath in 2014 Discussed with cardiology who recommends outpatient follow up for stress I called and discussed this with his PCP who will follow up as an outpatient, would like benefit from EGD to evaluate for non cardiac reasons for pain Clinical Quality Measures AMI/AHF: ASA po Prior to arrival: No DVT/VTE Risk/Contraindication: Risk Factor Score Per Nursin RFS Level Per Nursing on Admit: 1=Low/No VTE PPX DARY TRIANA MD Apr 18, 2020 12:44
--- NOTE | 2020-04-18 12:58 | Discharge Inst-Simple/Standard ---
Discharge Inst-Standard Discharge Medications New, Converted or Re-Newed RX: Transmitted to Pharmacy Patient Instructions/Follow Up Plan of Care/Instructions/FU: Please continue to takeyour medications as written. Please follow up with Dr Velazco and Dr Wise as recommended. Activity as Tolerated: Yes Discharge Diet: ADA Diet, Cardiac Diet Return to The Hospital For: chest pain, shortness of breath, fever, confusion, if you feel you are getting worse. Planned Outpatient Orders/Ref. Pneu Vac Indicated: Yes DARY TRIANA MD Apr 18, 2020 12:58
--- NOTE | 2020-04-18 14:03 | NUR ---
Received dietary consult for MST score. Note pt is currently PUI for COVID-19. Will monitor intake and attempt nutrition assessment on 04/20. SEmani Benton, MS, RD, LD
== END 2020-04-18 14:18 | disposition home or self-care (01) ==
LOC: EDUNIT# 18:00 → ER 18:01 → CSD 19:15
PROVIDERS: ADMIT Internal Medicine; ATTEND Internal Medicine
DX: R07.9 Chest pain, unspecified (principal); J44.9 Chronic obstructive pulmonary disease, unspecified; I25.10 Atherosclerotic heart disease of native coronary artery without angina pectoris; E78.00 Pure hypercholesterolemia, unspecified; I10 Essential (primary) hypertension; K52.9 Noninfective gastroenteritis and colitis, unspecified; E11.9 Type 2 diabetes mellitus without complications; M06.9 Rheumatoid arthritis, unspecified; Z79.82 Long term (current) use of aspirin; Z88.8 Allergy status to other drugs, medicaments and biological substances; Z79.51 Long term (current) use of inhaled steroids; Z79.84 Long term (current) use of oral hypoglycemic drugs; Z79.899 Other long term (current) drug therapy; Z87.891 Personal history of nicotine dependence
CPT/HCPCS: 71045; 80053 ×2; 80061; 83735; 83874; 84484 ×2; 85025 ×2; 85610; 85730; 93005 ×2; 93041; 99284; G0378; U0002; 36415; 87635

== ENCOUNTER → 2020-12-29 | Outpatient (CLI) | payer MEDICARE, MEDICAID ==
[~2020-12-29] MED LIST changes: +AMLO-251 PO; -AMLO10TA7 PO; +ASPI-1238 PO; -ASPI-983 PO; +ENAL10TA16 PO; -PANT40TA3 PO; +PANT40TA52 PO
== END ==
LOC: CARD 09:19
PROVIDERS: ATTEND Physician Assistant
DX: I25.10 Atherosclerotic heart disease of native coronary artery without angina pectoris (principal); I10 Essential (primary) hypertension
CPT/HCPCS: 93306

== ENCOUNTER → 2021-01-29 | Outpatient (CLI) | payer MEDICARE, MEDICAID ==
[~2021-01-29] VITALS: Ht 172 cm; Wt 144.0 kg
[~2021-01-29] MED LIST changes: +CATHETER FLUSH 10 ML SYR IV PRN; +REGADENOSON 0.4 MG/5 ML SYR (LEXISCAN) IV ONE
[2021-01-29 09:34] VITALS: BP 156/73
--- NOTE | 2021-01-29 11:20 | Cardiology Stress Test Report ---
Stress Test Report Date of Procedure/Referring: Date of Procedure: Jan 29, 2021 Deloris Lloyd Admitting Physician Janene Velazco MD Indications: Heart disease Baseline Heart Rate: 77 Baseline Blood Pressure: Blood Pressure Systolic: 156 Blood Pressure Diastolic: 73 Baseline Vitals Vital Signs Date Time Temp Pulse Resp B/P (MAP) Pulse Ox O2 Delivery O2 Flow Rate FiO2 01/29/21 09:34 76 156/73 (100) 98 Baseline EKG: Baseline EKG: Normal sinus rhythm Summary After explaining the procedure to the patient, he signed a consent and then brought to the stress nuclear laboratory. Patient received 0.4 mg Lexiscan for stress test, ECG, heart rate and blood pressure were monitored continuously. Resting and stress dose of radio tracer were injected, imaging was acquired and reviewed in short axis, horizontal long axis and vertical long axis views. TID: 0.94 SSS: 6 SDS: 0 EF: 61 1. Patient tolerated Lexiscan well 2. Diaphragmatic attenuation with fixed defect at the mid to apical inferolateral wall with no significant ischemia 3. Normal left ventricular size, normal contractility, EF 61% LATIA ERIC MD Jan 29, 2021 11:20
== END ==
LOC: CARD 08:15
PROVIDERS: ATTEND Physician Assistant
DX: I25.10 Atherosclerotic heart disease of native coronary artery without angina pectoris (principal); I10 Essential (primary) hypertension
CPT/HCPCS: 78452; 93017; A9502

== ENCOUNTER 2021-07-13 05:33 | Outpatient (CLI) | payer MEDICARE, MEDICAID ==
[~2021-07-13] VITALS: Ht 172.7 cm; Wt 142.8 kg
[~2021-07-13 05:33] MED LIST changes: -CATHETER FLUSH 10 ML SYR IV PRN; -REGADENOSON 0.4 MG/5 ML SYR (LEXISCAN) IV ONE
[2021-07-16] MEDS ORDERED: CYCL10TA9 PO (13:34)
[2021-07-16] MEDS ORDERED: SEMA0.25 SQ (13:34)
== END 2021-07-16 16:09 | disposition home or self-care (01) ==
LOC: PREOP 05:33
PROVIDERS: ATTEND Surgery
DX: Z01.818 Encounter for other preprocedural examination (principal)

== ENCOUNTER → 2021-07-17 | Outpatient (CLI) | payer MEDICARE, MEDICAID ==
[~2021-07-17] MED LIST changes: +CYCL10TA9 PO; +SEMA0.25 SQ
== END ==
LOC: LAB FS 10:00
PROVIDERS: ATTEND Surgery
DX: Z01.812 Encounter for preprocedural laboratory examination (principal); Z12.11 Encounter for screening for malignant neoplasm of colon; K21.9 Gastro-esophageal reflux disease without esophagitis; Z20.822 Contact with and (suspected) exposure to COVID-19; Z86.010 Personal history of colon polyps
CPT/HCPCS: 87635

== ENCOUNTER 2021-07-18 10:26 | Day surgery (SDC) | payer MEDICARE, MEDICAID ==
[~2021-07-18] VITALS: Ht 172.7 cm; Wt 142.8 kg
[2021-07-18] VITALS (7 sets, daily range): BP systolic 95–129; BP diastolic 61–77
--- NOTE | 2021-07-18 10:31 | Progress Note-Pre Operative ---
Pre-Operative Progress Note H&P Reviewed The H&P was reviewed, patient examined and no changes noted. Date Seen by Provider: Jul 18, 2021 Time Seen by Provider: : Date H&P Reviewed: Jul 18, 2021 Time H&P Reviewed: : Pre-Operative Diagnosis: GERD, hx polyp with dysplasia MERCEDES BURRELL MD Jul 18, 2021 10:31
[2021-07-18] MEDS ORDERED: LACTATED RINGERS 1,000 ML IV STA (10:32)
--- NOTE | 2021-07-18 10:32 | Discharge Inst-Surgical ---
D/C Lap Instructions-ASHANTI Follow Up Appt in 2 weeks Activity as tolerated High Fiber Diet 25g or more per day Avoid Alcohol, Caffeine, Spicy Zoar and Acid foods. Drink 64 fluid oz or more of fluids per day. Symptoms to Report: Fever over 101 degree F, Nausea/Vomiting If any problems/questions: Contact your physician or go to Emergency Room MERCEDES BURRELL MD Jul 18, 2021 10:32
[2021-07-18] MEDS ORDERED: LACTATED RINGERS 1,000 ML IV ONE (10:40)
[2021-07-18] MEDS ORDERED: LIDOCAINE JELLY 2% 6 ML SYRINGE MM PRN (10:45)
[2021-07-18] MEDS ORDERED: ONDANSETRON 4 MG (ZOFRAN) ORAL DISSOLVE TAB PO PRN ×2 (10:45→12:45)
[2021-07-18] MEDS ORDERED: HURRICAINE EXT TUBE (BENZOCAINE) XX PRN (10:45)
[2021-07-18] MEDS ORDERED: ONDANSETRON 4 MG/2 ML (SDV) Z0FRAN IVP PRN ×2 (10:45→12:45)
[2021-07-18] MEDS ORDERED: PROPOFOL INJECTION 50 ML IV ONE ×2 (11:02→11:53)
[2021-07-18] MEDS ORDERED: MIDAZOLAM 2 MG/2 ML (VERSED) VIAL ONE (11:28)
--- NOTE | 2021-07-18 12:33 | Progress Note-Post Operative ---
Post-Operative Progess Note Surgeon (s)/Psych Sales Specialist (s) Surgeon MERCEDES BURRELL MD Psych Sales Specialist: none Pre-Operative Diagnosis GERD, hx polyp with dysplasia Post-Operative Diagnosis reflux esophagitis(stage 2), small HH(2cm), moderate gastritis. chronic stage 2 ext and int hemorrhoids. Procedure & Operative Findings Date of Procedure 07/18/21 Procedure Performed/Findings EGD with bx. Colonoscopy. Anesthesia Type mac Estimated Blood Loss Estimated blood loss (mL): minimal Specimens/Packing Specimens Removed ge jxn, antrum MERCEDES BURRELL MD Jul 18, 2021 12:33
--- NOTE | 2021-07-18 14:12 | Anesthesia-General Post-Op ---
MAC Patient Condition Mental Status/LOC: Same as Preop Cardiovascular: Satisfactory Nausea/Vomiting: Absent Respiratory: Satisfactory Pain: Controlled Complications: Absent Post Op Complications Complications None Follow Up Care/Instructions Patient Instructions None needed. Anesthesiology Discharge Order Discharge Order Patient is doing well, no complaints, stable vital signs, no apparent adverse anesthesia problems. No complications reported per nursing. MILAGRO WILLIAMSON CRNA Jul 18, 2021 14:12
--- NOTE | 2021-07-18 17:32 | OPERATIVE REPORT ---
DATE OF SERVICE: 07/18/2021 ATTENDING PRIMARY CARE PHYSICIAN: Janene Velazco MD PREOPERATIVE DIAGNOSES: Gastroesophageal reflux disease, history of polyp with dysplastic changes. POSTOPERATIVE DIAGNOSES: Reflux esophagitis stage II, small hiatal hernia, moderate gastritis, chronic stage II external and internal hemorrhoids. PROCEDURE: EGD with biopsy, colonoscopy. SURGEON: Mercedes Burrell MD ANESTHESIA: Monitored anesthesia care. ESTIMATED BLOOD LOSS: Minimal. FINDINGS: Reflux esophagitis stage II, small hiatal hernia, moderate gastritis, chronic stage II external and internal hemorrhoids. DISPOSITION: The patient tolerated the procedure well. INDICATIONS: The patient is a 66-year-old male known to us. We had seen him in 2019 for reflux, regurgitation, nausea and vomiting. He was also in need of a screening colonoscopy and we had done an EGD, which showed a significant gastritis and biopsies were positive for H. pylori. He was also found to have a polyp of the sigmoid colon, which was excised and benign. However, a focus of high-grade dysplasia was identified with no invasion. He states that since that time, he does continue to have issues with reflux. He does not report any major issues with diarrhea nor constipation as well as no red blood per rectum nor any dark tarry stools. DESCRIPTION OF PROCEDURE: The patient was brought to the endoscopy suite, laid in the left lateral decubitus position. After adequate IV pain and sedative medications and monitored anesthesia care, the mouthpiece was applied. The endoscope was placed in the mouth, visualizing the pharynx and hypopharyngeal region. Vocal cords, epiglottis and vallecula identified and appeared to be normal. The endoscope was then gently intubated into the esophageal opening and esophagus insufflated. The endoscope was then advanced through the first, second and third portion of esophagus at the level of the GE junction, reflux esophagitis stage II identified. No ulcers or strictures identified. A biopsy was taken with forceps with visualization of good hemostasis. The endoscope was then advanced into the stomach and endoscope retroflexed, visualizing a small hiatal hernia approximately 2 cm in size. There was a moderate severity gastritis. No formal ulcerations, polyps, or any neoplasms. A biopsy was taken of the antrum to rule out H. pylori with visualization of good hemostasis. Endoscope was then advanced through the pylorus and the first and second portions of duodenum, which appeared normal with no distal obstructions. The endoscope was then slowly withdrawn while taking a second look and suctioning of residual air with no additional findings. A digital rectal examination was then performed, which revealed a chronic stage II external and internal hemorrhoids, not actively edematous nor inflamed and no bleeding. Normal sphincter tone was felt and there were no palpable masses. Prostate gland was palpable and appeared normal. The endoscope was then intubated and anus and rectum gently insufflated. The endoscope was then advanced through the valves of Jim of the rectum with no polyps or any neoplasms identified. We then proceeded through the sigmoid colon where no real significant diverticulosis identified. Endoscope was then advanced and remainder of the descending, transverse and ascending colon to the cecum, which were normal. The endoscope was then slowly withdrawn while taking a second look and suctioning of residual air with no additional findings. The patient tolerated the procedure well. We will recommend the necessary lifestyle and diet accommodation, which would include avoidance of caffeinated beverages, spicy, greasy and acidic foods as well as taking a small and more frequent meals and avoidance of eating at night. He also needs to continue to take proton pump inhibitor as well as the addition of Carafate 1 gram q.i.d. for the next 2 weeks, then on p.r.n. basis. We will recommend a high fiber diet with a fiber supplement, which should equal or exceed 30 grams daily as well as significant amounts of water to promote soft stools on a daily basis. We will recommend a followup colonoscopy in 5 years due to a history of polyp with high-grade dysplasia focus identified. Job ID: [id number] DocumentID: [id number] Dictated Date: 07/18/2021 12:15:41 Religion Professor Date: 07/18/2021 17:31:09 Dictated By: MERCEDES BURRELL MD
== END 2021-07-18 12:56 | disposition home or self-care (01) ==
LOC: ENDO 10:26
PROVIDERS: ATTEND Surgery
DX: Z12.11 Encounter for screening for malignant neoplasm of colon (principal); K21.00 Gastro-esophageal reflux disease with esophagitis, without bleeding; K44.9 Diaphragmatic hernia without obstruction or gangrene; K29.70 Gastritis, unspecified, without bleeding; K64.1 Second degree hemorrhoids; I25.10 Atherosclerotic heart disease of native coronary artery without angina pectoris; I25.2 Old myocardial infarction; I10 Essential (primary) hypertension; E78.00 Pure hypercholesterolemia, unspecified; J44.9 Chronic obstructive pulmonary disease, unspecified; Z88.8 Allergy status to other drugs, medicaments and biological substances; Z87.891 Personal history of nicotine dependence; E66.01 Morbid (severe) obesity due to excess calories; Z86.010 Personal history of colon polyps; Z68.42 Body mass index [BMI] 45.0-49.9, adult; Z79.82 Long term (current) use of aspirin; Z79.899 Other long term (current) drug therapy
CPT/HCPCS: 43239; G0105; 82947

== ENCOUNTER → 2021-08-14 | Outpatient (CLI) | payer MEDICARE, MEDICAID | LOC: LAB FS 12:23 | PROVIDERS: ATTEND Internal Medicine Cardiovascular Disease | DX: Z20.822 Contact with and (suspected) exposure to COVID-19 (principal) | CPT/HCPCS: 87635 ==

== ENCOUNTER 2021-08-16 19:06 | Outpatient (CLI) | payer MEDICARE, MEDICAID | END 2021-08-17 07:30 | disposition home or self-care (01) | LOC: SLEEP 19:06 | PROVIDERS: ATTEND Internal Medicine Cardiovascular Disease | DX: G47.33 Obstructive sleep apnea (adult) (pediatric) (principal); G47.10 Hypersomnia, unspecified; E11.9 Type 2 diabetes mellitus without complications; E78.2 Mixed hyperlipidemia; I10 Essential (primary) hypertension; I25.10 Atherosclerotic heart disease of native coronary artery without angina pectoris; E66.9 Obesity, unspecified; I65.23 Occlusion and stenosis of bilateral carotid arteries; R60.0 Localized edema; Z87.891 Personal history of nicotine dependence; Z90.49 Acquired absence of other specified parts of digestive tract; Z90.89 Acquired absence of other organs | CPT/HCPCS: 95810 ==

== ENCOUNTER → 2021-08-31 | Outpatient (CLI) | payer MEDICARE, MEDICAID | LOC: LAB FS 10:00 | PROVIDERS: ATTEND Otolaryngology Otolaryngology/Facial Plastic Surgery | DX: Z01.812 Encounter for preprocedural laboratory examination (principal); G47.33 Obstructive sleep apnea (adult) (pediatric); Z20.822 Contact with and (suspected) exposure to COVID-19 | CPT/HCPCS: 87635 ==

== ENCOUNTER 2021-09-04 19:29 | Outpatient (CLI) | payer MEDICARE, MEDICAID | END 2021-09-05 06:09 | disposition home or self-care (01) | LOC: SLEEP 19:29 | PROVIDERS: ATTEND Otolaryngology Otolaryngology/Facial Plastic Surgery | DX: G47.33 Obstructive sleep apnea (adult) (pediatric) (principal) | CPT/HCPCS: 95811 ==

== ENCOUNTER → 2021-09-21 | Outpatient (CLI) | payer MEDICARE, MEDICAID ==
[~2021-09-21] MED LIST changes: +CYCL10TA25 PO; -CYCL10TA9 PO
--- NOTE | 2021-09-21 10:26 | Diagnostic Imaging Report ---
Indication: Dysphasia. Study was performed in conjunction with speech pathology. Video fluoroscopy was performed during swallowing of barium multiple consistencies. Patient ingested thin and thick barium as well as applesauce, peach, ground meat and cracker consistencies. Total of 33 seconds of fluoroscopic time was utilized. Oral phase unremarkable. There is normal epiglottic tilt and laryngeal elevation. No laryngeal penetration or aspiration was observed. IMPRESSION: Normal modified barium swallow. Dictated by: Dictated on workstation # [id number]
== END ==
LOC: RAD 09:03
PROVIDERS: ATTEND Otolaryngology Otolaryngology/Facial Plastic Surgery
DX: R13.12 Dysphagia, oropharyngeal phase (principal)
CPT/HCPCS: 74230

== ENCOUNTER 2021-10-09 06:23 | Emergency (ER) | payer MEDICARE, MEDICAID ==
[~2021-10-09] VITALS: Ht 172.7 cm; Wt 143.7 kg
[2021-10-09 06:25] VITALS: BP 155/70
--- NOTE | 2021-10-09 06:36 | ED Dyspnea ---
General Stated Complaint: SOB Source of Information: Patient, EMS Exam Limitations: No Limitations History of Present Illness Date Seen by Provider: Oct 09, 2021 Time Seen by Provider: 06:20 Initial Comments 66-year-old male with past medical history of diabetes and sleep apnea coming in due to gasping for air. Came in via EMS, and call them because he said he woke up in a panic and felt like he could not breathe. He does say the sleep apnea diagnosis was recent and he has only been using the CPAP for the last 2 weeks. Is not been very comfortable and he is not getting a good seal at times. He says he recently had cataract surgery so he has to wear an eye shield which affects the seal. Says he is fine during the daytime but this has been going on waking up gasping a few times over the past couple weeks as well. He says when he was tested for MARTY, he had over 60 apneic events every hour. He took off his mask and tried to sleep on the chair sitting upright and he had another episode so he called EMS. They say when he got there, he was breathing 40-50 times a minute, with clear lung sounds. They did give him a DuoNeb just to see if that would help. They said symptoms have completely resolved on route to the hospital. He is denying any current chest pain, shortness of breath, abdominal pain, nausea, vomiting, diarrhea, fever, chills, weakness, numbness, or any other concerns. Allergies and Home Medications Allergies Coded Allergies: Haloperidol Lactate (Verified Allergy, Unknown, 08/11/15) glimepiride (Verified Allergy, Unknown, Diarrhea, 03/08/19) haloperidol (Verified Allergy, Unknown, 08/11/15) metformin (Verified Allergy, Unknown, 08/11/15) Patient Home Medication List Home Medication List Reviewed: Yes Amlodipine Besylate (Amlodipine Besylate) 10 Mg Tablet, 10 MG PO DAILY, (Reported) Entered as Reported by: PRADIP MOE on 08/11/15 1526 Aspirin (Aspirin EC) 81 Mg Tablet.dr, 81 MG PO DAILY, (Reported) Entered as Reported by: PRADIP MOE on 08/11/15 1526 Cyclobenzaprine HCl (Cyclobenzaprine HCl) 10 Mg Tablet, 10 MG PO TID, (Reported) Entered as Reported by: SHALINI SANCHES on 07/16/21 1334 Enalapril Maleate (Enalapril Maleate) 10 Mg Tablet, 10 MG PO BID Prescribed by: TOMÁS ASCENCIO on 10/09/21 0638 Flaxseed/Omega3,6,9/Fatty Acid (Flax Seed Oil 1,300 mg Softgel) 1 Each Capsule, 2 EACH PO DAILY, (Reported) Entered as Reported by: NANI OWUSU on 03/08/19 1450 Pantoprazole Sodium (Protonix) 40 Mg Tablet.dr, 40 MG PO DAILY Prescribed by: MERCEDES BURRELL on 03/10/19 1306 Pioglitazone HCl (Pioglitazone HCl) 30 Mg Tablet, 30 MG PO DAILY, (Reported) Entered as Reported by: NANI OWUSU on 03/08/19 1450 Rosuvastatin Calcium (Rosuvastatin Calcium) 20 Mg Tablet, 20 MG PO HS, (Reported) Entered as Reported by: NANI OWUSU on 03/08/19 1450 Semaglutide (Ozempic) 0.25 Mg/0.2 Ml Pen.injctr, 0.25 MG SQ DAILY, (Reported) Entered as Reported by: SHALINI SANCHES on 07/16/21 1334 Review of Systems Review of Systems Constitutional: No chills, No fever EENTM: No blurred vision Respiratory: No cough; short of breath Cardiovascular: No chest pain Gastrointestinal: No abdominal pain Genitourinary: no symptoms reported Musculoskeletal: no symptoms reported Skin: no symptoms reported Psychiatric/Neurological: No Symptoms Reported Endocrine: No Symptoms Reported Hematologic/Lymphatic: No Symptoms Reported All Other Systems Reviewed Negative Unless Noted: Yes Past Zeknzql-Plsbrd-Nsyzlp Hx Patient Social History Tobacco Use?: No Substance use?: No Immunizations Up To Date Tetanus Booster (TDap): More than 5yrs First/Initial COVID19 Vaccinat: JANUARY 2021 Second COVID19 Vaccination Teofilo: FEBRUARY 2021 Seasonal Allergies Seasonal Allergies: No Past Medical History Surgeries: Yes (teeth extraction) Appendectomy, Gallbladder Respiratory: Yes COPD Currently Using CPAP: No Currently Using BIPAP: No Cardiac: Yes (neuropathy of heart muscle, heart cath x2) Coronary Artery Disease, Heart Attack, High Cholesterol, Hypertension Neurological: No Reproductive Disorders: No Sexually Transmitted Disease: No HIV/AIDS: No Genitourinary: Yes Kidney Stones Gastrointestinal: Yes (dysphagia) Gastrointestinal Bleed, Hemorrhoids, Chronic Diarrhea, Hiatal Hernia Musculoskeletal: Yes Arthritis, Rheumatoid Arthritis Endocrine: Yes Diabetes, Non-Insulin dep HEENT: Yes Cataract, Tinnitis Loss of Vision: Denies Hearing Impairment: Denies Cancer: No Psychosocial: No Integumentary: No Blood Disorders: No Adverse Reaction/Blood Tranf: No Family Medical History Cardiovascular disease 19 FATHER 19 MOTHER Hypertension 19 FATHER No Pertinent Family Hx Physical Exam Vital Signs Vital Signs - First Documented 10/09/21 06:25 Temp 37.0 Pulse 96 Resp 20 B/P (MAP) 155/70 (98) Pulse Ox 100 O2 Delivery Room Air Capillary Refill : Height, Weight, BMI Height: 5'8.00" Weight: 325lbs. 0.0oz. [id number]; 47.87 BMI Method: General Appearance: No Apparent Distress, WD/WN, Anxious HEENT: PERRL/EOMI, Normal ENT Inspection, Pharynx Normal Neck: Full Range of Motion, Normal Inspection, Non Tender, Supple Respiratory: Chest Non Tender, Lungs Clear, Normal Breath Sounds, No Accessory Muscle Use, No Respiratory Distress Cardiovascular: Regular Rate, Rhythm, No Edema, Normal Peripheral Pulses Gastrointestinal: Normal Bowel Sounds, Non Tender, Soft; No Distended, No Guarding Extremity: Normal Capillary Refill, Normal Inspection, Normal Range of Motion, Non Tender, No Calf Tenderness, No Pedal Edema Neurologic/Psychiatric: Alert, No Motor/Sensory Deficits, Normal Mood/Affect Skin: Normal Color, Warm/Dry Lymphatic: No Adenopathy Progress/Results/Core Measures Results/Orders My Orders Orders - TOMÁS ASCENCIO MD Ekg Tracing (10/09/21 06:28) Monitor-Rhythm Ecg Trace Only (10/09/21 06:28) Chest 1 View Ap/Pa Only (10/09/21 06:28) Furosemide Tablet (Lasix Tablet) (10/09/21 06:41) Potassium Chloride (Tablet) (K Dur Table (10/09/21 06:45) Medications Given in ED Current Medications Medications Dose Ordered Sig/Alethea Route Start Time Stop Time Status Last Admin Dose Admin Potassium Chloride 20 meq ONCE ONCE PO 10/09/21 06:45 10/09/21 06:46 DC 10/09/21 06:48 20 MEQ Vital Signs/I&O 10/09/21 06:25 Temp 37.0 Pulse 96 Resp 20 B/P (MAP) 155/70 (98) Pulse Ox 100 O2 Delivery Room Air Progress Progress Note : Progress Note 66-year-old male with above history coming in air specifically after not wearing his CPAP machine. ABCs were intact and vitals were stable on presentation. He currently looks comfortable, oxygen saturation is greater than 98% at all times on room air. EKG without any acute ischemic changes. Chest x-ray with no infiltrate or pneumothorax. I believe this is because the patient is not wearing his CPAP machine. His lung welch are relatively clear on chest x-ray, although difficult given his adiposity. His heart border is slightly enlarged from prior. I suspect this is some aspect of heart failure as well given his uncontrolled hypertension. We will give him a dose of Lasix here. The patient was looking good, and was getting ready for discharge, but then started belching uncontrollably. I discussed the patient staying and doing a potential cardiac work-up further given this odd nature, but he says he does want to go home. He says he will call Dr. Wise today and schedule follow-up appointment. I did discuss his enlarged heart border and likely he is developing some aspect of heart failure and being volume overloaded, and likely needs to be on lasix all the time. He was then discharged home in stable condition with strict return precautions Initial ECG Impression Date: Oct 09, 2021 Initial ECG Impression Time: 06:23 Initial ECG Rate: 94 Initial ECG Rhythm: Normal Sinus Comment Narrow QRS, normal axis, no significant ST changes or T wave abnormalities, overall low voltage Diagnostic Imaging Diagonstic Imaging: Xray Plain Films/CT/US/NM/MRI: chest Comments NAME: BRIAN ATKINSON [facility] REC#: [id number] PT STATUS: REG ER : 1955 PHYSICIAN: TOMÁS ASCENCIO MD ADMIT DATE: 10/09/21/ER FS Draft Date of Exam:10/09/21 CHEST 1 VIEW AP/PA ONLY INDICATION: Shortness of breath. COMPARISON: 04/17/2020. FINDINGS: Single view of the chest demonstrates cardiac enlargement with slight central vascular congestion. There is no pneumothorax or large effusion. Osseous structures stable. IMPRESSION: Cardiac enlargement with central vascular congestion. Dictated on workstation # [id number] Dict: 10/09/21 0636 Trans: 10/09/21 0645 [id number] Interpreted by: REJI BLANCHARD Electronically signed by: Departure Impression Primary Impression: Sleep apnea Qualified Codes: G47.33 - Obstructive sleep apnea (adult) (pediatric) Additional Impression: Hypertension Qualified Codes: I10 - Essential (primary) hypertension Disposition: 01 HOME, SELF-CARE Condition: Stable Departure-Patient Inst. Decision time for Depature: 06:45 Referrals: ULIS ESTRADA MD (PCP/Family) Primary Care Physician Patient Instructions: Sleep Apnea in Adults Add. Discharge Instructions: Please continue to use your CPAP machine and try to get the best seal possible. If you do not use this you will continue to have apnea and wake up anxious like you did. The more you get used to this machine the better this should be. If you continue to have apnea with the machine, they may need to change the settings. Scripts Enalapril Maleate (Enalapril Maleate) 10 Mg Tablet 10 MG PO BID for 30 Days, #60 TAB Prov: TOMÁS ASCENCIO MD 10/09/21 Work/School Note: Work Release Form Date Seen in the Emergency Department: Oct 09, 2021 Return to Work: Oct 10, 2021 Restrictions: No Restrictions TOMÁS ASCENCIO MD Oct 09, 2021 06:35
[2021-10-09] MEDS ORDERED: ENAL10TA16 PO (06:38)
[2021-10-09] MEDS ORDERED: FUROSEMIDE 20 MG (LASIX) TAB PO STA (06:41)
[2021-10-09] MEDS ORDERED: KCL 20 MEQ TAB (K-DUR) PO ONE (06:45)
--- NOTE | 2021-10-09 06:45 | Diagnostic Imaging Report ---
INDICATION: Shortness of breath. COMPARISON: 04/17/2020. FINDINGS: Single view of the chest demonstrates cardiac enlargement with slight central vascular congestion. There is no pneumothorax or large effusion. Osseous structures stable. IMPRESSION: Cardiac enlargement with central vascular congestion. Dictated by: Dictated on workstation # [id number]
== END 2021-10-09 07:04 | disposition home or self-care (01) ==
LOC: EDUNIT# 06:23 → ER FS 06:24
DX: G47.30 Sleep apnea, unspecified (principal); I10 Essential (primary) hypertension; J44.9 Chronic obstructive pulmonary disease, unspecified; I25.2 Old myocardial infarction; I25.10 Atherosclerotic heart disease of native coronary artery without angina pectoris; E11.9 Type 2 diabetes mellitus without complications; E78.00 Pure hypercholesterolemia, unspecified; Z79.82 Long term (current) use of aspirin; Z79.899 Other long term (current) drug therapy
CPT/HCPCS: 71045; 93005; 93041

== ENCOUNTER → 2021-10-09 | Outpatient (CLI) | payer MEDICARE, MEDICAID ==
[2021-10-09 15:12] LABS: CALCIUM 9.1 MG/DL (8.5-10.1); CREATININE SERUM 1.36 MG/DL (0.60-1.30); POTASSIUM 4.5 MMOL/L (3.6-5.0)
== END ==
LOC: LAB FS 14:12
PROVIDERS: ATTEND Physician Assistant
DX: I10 Essential (primary) hypertension (principal)
CPT/HCPCS: 36415; 80048

== ENCOUNTER 2022-11-05 12:35 | Emergency (ER) | payer MEDICARE, MEDICAID ==
[~2022-11-05] VITALS: Ht 172.7 cm; Wt 150.5 kg
[2022-11-05 12:40] VITALS: BP 121/58
--- NOTE | 2022-11-05 12:57 | ED GI ---
General Chief Complaint: Abdominal/GI Problems Stated Complaint: BOWEL CONSTIPATION Source of Information: Patient History of Present Illness Date Seen by Provider: Nov 05, 2022 Time Seen by Provider: 12:39 Initial Comments 67-year-old male presenting with complaints of sudden onset of rectal pain and pressure over the last few hours. He states his last bowel movement was over a week. He recently was started on Ozempic and has not been eating and drinking as much as usual. He states he has had 15 pound weight loss since starting the Ozempic. He denies taking any narcotics or chronic pain medicines that would cause constipation and he is not taking any antidiarrheal medications. No nausea, vomiting, fever, chills, pain with urination, abdominal trauma, abdominal pain. Timing/Duration: 4-6 Hours Severity/Quality: Severe, Sharp (rectal pain with pressure) Activities at Onset: Other (attempting to have BM) Modifying Factors: Worsens With Defecating Associated Symptoms: No Back Pain, No Chest Pain, No Diaphoresis, No Fever/Chills, No Fatigue, No Headache, No Heartburn, No Nausea/Vomiting, No Rash, No Shortness of Air, No Swelling/Mass in Abdomen, No Syncope, No Weakness Allergies and Home Medications Allergies Coded Allergies: Haloperidol Lactate (Verified Allergy, Unknown, 08/11/15) glimepiride (Verified Allergy, Unknown, Diarrhea, 03/08/19) haloperidol (Verified Allergy, Unknown, 08/11/15) metformin (Verified Allergy, Unknown, 08/11/15) Patient Home Medication List Home Medication List Reviewed: Yes Amlodipine Besylate (Amlodipine Besylate) 10 Mg Tablet, 10 MG PO DAILY, (Reported) Entered as Reported by: PRADIP MOE on 08/11/15 1526 Aspirin (Aspirin EC) 81 Mg Tablet.dr, 81 MG PO DAILY, (Reported) Entered as Reported by: PRADIP MOE on 08/11/15 1526 Cyclobenzaprine HCl (Cyclobenzaprine HCl) 10 Mg Tablet, 10 MG PO TID, (Reported) Entered as Reported by: SHALINI SANCHES on 07/16/21 1334 Enalapril Maleate (Enalapril Maleate) 10 Mg Tablet, 10 MG PO BID Prescribed by: TOMÁS ASCENCIO on 10/09/21 0638 Flaxseed/Omega3,6,9/Fatty Acid (Flax Seed Oil 1,300 mg Softgel) 1 Each Capsule, 2 EACH PO DAILY, (Reported) Entered as Reported by: NANI OWUSU on 03/08/19 1450 Pantoprazole Sodium (Protonix) 40 Mg Tablet.dr, 40 MG PO DAILY Prescribed by: MERCEDES BURRELL on 03/10/19 1306 Pioglitazone HCl (Pioglitazone HCl) 30 Mg Tablet, 30 MG PO DAILY, (Reported) Entered as Reported by: NANI OWUSU on 03/08/19 1450 Rosuvastatin Calcium (Rosuvastatin Calcium) 20 Mg Tablet, 20 MG PO HS, (Reported) Entered as Reported by: NANI OWUSU on 03/08/19 1450 Semaglutide (Ozempic) 0.25 Mg/0.2 Ml Pen.injctr, 0.25 MG SQ DAILY, (Reported) Entered as Reported by: SHALINI SANCHES on 07/16/21 1334 Review of Systems Review of Systems Constitutional: No chills, No fever EENTM: No Symptoms Reported Respiratory: No Symptoms Reported Cardiovascular: No Symptoms Reported Gastrointestinal: See HPI Genitourinary: No Symptoms Reported Musculoskeletal: no symptoms reported Skin: no symptoms reported Psychiatric/Neurological: Anxiety Past Mcfutvr-Smlpha-Fmjvzk Hx Patient Social History Tobacco Use?: No Substance use?: No Alcohol Use?: No Pt feels they are or have been: No Immunizations Up To Date Tetanus Booster (TDap): More than 5yrs First/Initial COVID19 Vaccinat: February Second COVID19 Vaccination Teofilo: a week ago Third COVID19 Vaccination Date: a week ago Seasonal Allergies Seasonal Allergies: No Past Medical History Surgery/Hospitalization HX: CHF; HTN; DM; Anxiety; High Cholesterol. Hemorrhoids Surgeries: Yes (teeth extraction) Appendectomy, Gallbladder Respiratory: Yes COPD Currently Using CPAP: No Currently Using BIPAP: No Cardiac: Yes (neuropathy of heart muscle, heart cath x2) Coronary Artery Disease, Heart Attack, High Cholesterol, Hypertension Neurological: No Reproductive Disorders: No Sexually Transmitted Disease: No HIV/AIDS: No Genitourinary: Yes Kidney Stones Gastrointestinal: Yes (dysphagia) Gastrointestinal Bleed, Hemorrhoids, Chronic Diarrhea, Hiatal Hernia Musculoskeletal: Yes Arthritis, Rheumatoid Arthritis Endocrine: Yes Diabetes, Non-Insulin dep HEENT: Yes Cataract, Tinnitis Loss of Vision: Denies Hearing Impairment: Denies Cancer: No Psychosocial: No Integumentary: No Blood Disorders: No Adverse Reaction/Blood Tranf: No Family Medical History Cardiovascular disease 19 FATHER 19 MOTHER Hypertension 19 FATHER No Pertinent Family Hx Physical Exam Vital Signs Vital Signs - First Documented 11/05/22 12:40 Temp 36.2 Pulse 104 Resp 22 B/P (MAP) 121/58 (79) Pulse Ox 98 O2 Delivery Room Air Capillary Refill : Height/Weight/BMI Height: 5'8.00" Weight: 325lbs. 0.0oz. 147.753582yo; 48.00 BMI Method: General Appearance: WD/WN, obese, other (Anxious and hyperventilating complaining of rectal pain and pressure) Respiratory: chest non-tender, lungs clear, normal breath sounds, no respiratory distress, no accessory muscle use Cardiovascular: normal peripheral pulses, regular rate, rhythm Gastrointestinal: normal bowel sounds, non tender, soft, no pulsatile mass Rectal: normal rectal tone, hemorrhoids, tenderness, other (On direct rectal exam he has obvious bleeding from hemorrhoids and rectal irritation. He has tenderness to palpation. There is a brown-colored stool present at the anal opening that he is trying to pass.) Extremities: normal range of motion, non-tender, normal capillary refill Neurologic/Psychiatric: alert Skin: warm/dry Progress/Results/Core Measures Results/Orders My Orders Orders - RADU MOISE MD Na Phos/Na Biphos Enema (Fleet Enema Joel (11/05/22 13:00) Medications Given in ED Current Medications Medications Dose Ordered Sig/Alethea Route Start Time Stop Time Status Last Admin Dose Admin Sodium Biphosphate/ Sodium Phosphate 1 ea ONCE ONCE KS 11/05/22 13:00 11/05/22 13:01 DC 11/05/22 13:05 1 EA Vital Signs/I&O 11/05/22 12:40 Temp 36.2 Pulse 104 Resp 22 B/P (MAP) 121/58 (79) Pulse Ox 98 O2 Delivery Room Air Progress Progress Note : Progress Note Differential diagnosis includes fecal impaction, rectal mass, thrombosed hemorrhoid, constipation. On direct rectal exam he has some bright red blood and irritation to the rectal area. There is some brown colored stool that is at the anal opening that he is trying to pass. Using lubricant and digital rectal exam I was able to disimpact several hard pieces of stool from his rectal vault. he tolerated the digital dis impaction well without acute significant problems or immediate complications. He had improvement in the pain and pressure with removal of fecal impaction. Then administered a Fleets enema to try and soften the remaining stool and help it pass easier. He had some further results here in the ED prior to going home. Counseled on follow-up and return precautions. Advised to take MiraLAX daily to help loosen his stools and get him more soft and regular. The Ozempic is a medicine that can slow the motility and contribute to constipation. Advised to increase the fiber in his diet as well as drink more fluids and that may be enough. Once his stools are more soft and regular he could decrease the MiraLAX to every other day or just 2-3 times a week as needed. Follow-up with primary care provider for continued concerns. As he was not having more worrisome signs of abdominal pain, nausea, vomiting and had active bowel sounds it was felt that he was safe to be discharged home to continue to pass stool and use over-the- counter laxatives. Advised that he will have some bleeding from his hemorrhoids both from him straining as well as the digital disimpaction. Departure Impression Primary Impression: Fecal impaction in rectum Additional Impressions: Constipation Qualified Codes: K59.03 - Drug induced constipation Bleeding hemorrhoids Disposition: 01 HOME, SELF-CARE Condition: Stable Departure-Patient Inst. Decision time for Depature: 13:08 Referrals: LUIS ESTRADA MD (PCP) Primary Care Physician Patient Instructions: Dealing with Constipation from the Drugs You Take, Fecal Impaction (DC), Constipation, Adult ED Add. Discharge Instructions: The Ozempic medicine can be contributing to constipation for you in addition to not eating as much food. Drink more fluids and try to increase the fiber in your diet can help but you may also want to take Miralax 17 grams or 1 capful mixed in 8 ounces of juice or water or liquid of your choice. Take that once a day to help keep stools soft and regular. Once you are going better you could decrease the Miralax to every other day or 2 to 3 times a week to help keep stools soft and regular. All discharge instructions reviewed with patient and/or family. Voiced understanding. RADU MOISE MD Nov 05, 2022 12:57
[2022-11-05] MEDS ORDERED: FLEET ENEMA ADULT 1 EA BTL PR ONE (13:00)
== END 2022-11-05 13:42 | disposition home or self-care (01) ==
LOC: EDUNIT# 12:35 → ER FS 12:37
DX: K59.00 Constipation, unspecified (principal); K64.9 Unspecified hemorrhoids
CPT/HCPCS: 99281

== ENCOUNTER → 2022-12-12 | Outpatient (CLI) | payer MEDICARE, MEDICAID ==
[2022-12-12 10:52] LABS: BILIRUBIN,TOTAL 0.6 MG/DL (0.1-1.0); CALCIUM 9.7 MG/DL (8.5-10.1); CREATININE SERUM 1.96 MG/DL (0.60-1.30); POTASSIUM 4.5 MMOL/L (3.6-5.0); TOTAL PROTEIN 7.3 GM/DL (6.4-8.2)
== END ==
LOC: LAB FS 09:43
PROVIDERS: ATTEND Nurse Practitioner Family
DX: E11.65 Type 2 diabetes mellitus with hyperglycemia (principal); Z79.4 Long term (current) use of insulin
CPT/HCPCS: 36415; 80053; 80061; 83036

== ENCOUNTER → 2023-02-06 | Outpatient (CLI) | payer MEDICARE, MEDICAID ==
[~2023-02-06] MED LIST changes: -ENAL10TA16 PO; +ENLP10T PO
--- NOTE | 2023-02-06 17:15 | Diagnostic Imaging Report ---
EXAMINATION: Lumbosacral spine 2 or 3 views. HISTORY: Chronic back pain. COMPARISON: None available. FINDINGS: There is mild L4-L5 and L5-S1 degenerative disc disease. Vertebral body heights are normal. No acute fracture is seen. Aorta is calcified. IMPRESSION: Mild L4-L5 and L5-S1 degenerative disc disease. Dictated by: Dictated on workstation # [id number]
== END ==
LOC: RAD FS 14:19
PROVIDERS: ATTEND Nurse Practitioner Family
DX: M51.36 Other intervertebral disc degeneration, lumbar region (principal); M51.37 Other intervertebral disc degeneration, lumbosacral region
CPT/HCPCS: 72100

== ENCOUNTER → 2023-04-10 | Outpatient (CLI) | payer MEDICARE, MEDICAID ==
[2023-04-10 09:40] LABS: BILIRUBIN,TOTAL 0.8 MG/DL (0.1-1.0); CALCIUM 9.6 MG/DL (8.5-10.1); CREATININE SERUM 1.79 MG/DL (0.60-1.30); POTASSIUM 4.2 MMOL/L (3.6-5.0)
[2023-04-10 09:41] LABS: TOTAL PROTEIN 7.5 GM/DL (6.4-8.2)
[2023-04-10 14:56] LABS: TRIGLYCERIDES 99 MG/DL (<150); VLDL CHOLESTEROL 20 MG/DL (5-40)
[2023-04-10 15:01] LABS: CHOLESTEROL 70 MG/DL (< 200)
[2023-04-10 15:02] LABS: HDL CHOLESTEROL 29 MG/DL (40-60)
== END ==
LOC: LAB FS 08:51
PROVIDERS: ATTEND Nurse Practitioner Family
DX: E11.65 Type 2 diabetes mellitus with hyperglycemia (principal); Z79.4 Long term (current) use of insulin
CPT/HCPCS: 36415; 80053; 80061; 82043